=== PATIENT | female | born 1970 | race Two or more races ===

== ENCOUNTER 2024-05-27 10:37 | Outpatient (RCR) | payer MEDICAID, SELFPAY | END 2024-06-04 23:59 | disposition home or self-care (01) | LOC: SCTC 10:37 | PROVIDERS: PCP Family Medicine; Referring Provider Family Medicine; Visit Provider Nurse Practitioner Family | DX: D50.9 Iron deficiency anemia, unspecified (principal); D69.6 Thrombocytopenia, unspecified; F20.9 Schizophrenia, unspecified; I69.354 Hemiplegia and hemiparesis following cerebral infarction affecting left non-dominant side; R93.89 Abnormal findings on diagnostic imaging of other specified body structures; K57.92 Diverticulitis of intestine, part unspecified, without perforation or abscess without bleeding; K64.9 Unspecified hemorrhoids; N85.2 Hypertrophy of uterus | CPT/HCPCS: 99212; G0463 ==

== ENCOUNTER 2024-06-14 15:35 | Outpatient (RCR) | payer MEDICAID, SELFPAY | END 2024-07-05 23:59 | disposition home or self-care (01) | LOC: SCTC 15:35 | PROVIDERS: PCP Family Medicine; Referring Provider Family Medicine; Visit Provider Nurse Practitioner Family | DX: D50.9 Iron deficiency anemia, unspecified (principal); D69.6 Thrombocytopenia, unspecified; N85.2 Hypertrophy of uterus; F20.9 Schizophrenia, unspecified | CPT/HCPCS: 99212; G0463 ==

== ENCOUNTER 2024-08-04 14:07 | Outpatient (RCR) | payer MEDICAID, SELFPAY ==
[2024-07-21 09:39] LABS: Basophils % (Auto) 0 % (0-2.5); Eosinophils # (Auto) 0.1 Thou/mm3 (0.0-0.5); Eosinophils % (Auto) 3 % (0-10); Hematocrit 24.4 % (36.0-46.0); Hemoglobin 7.8 g/dL (12.0-16.0); Immature Granulocytes % (Auto) 2 % (0-0); Immature Granulocytes Auto 0.07 Thou/mm3 (0.00-0.00); Lymphocytes % (Auto) 28 % (10-50); Mean Corpuscular Hemoglobin 28.8 pg (25.0-35.0); Mean Corpuscular Volume 90 fL (80-100); Monocytes # (Auto) 0.3 Thou/mm3 (0.0-0.8); Monocytes % (Auto) 9 % (0-12); Neutrophils # (Auto) 2.1 Thou/mm3 (1.8-7.7); Neutrophils % (Auto) 58 % (37-80); Nucleated Red Blood Cell # 0.02 Thou/mm3 (0.00-0.00); Nucleated Red Blood Cell % 1 /100 WBC (0); Platelet Count 54 Thou/mm3 (140-440); RDW Standard Deviation 54.9 fL (36.4-46.3); Red Blood Count 2.71 Miln/mm3 (4.00-5.20); White Blood Count 3.6 Thou/mm3 (3.6-11.0)
[2024-07-21 10:22] LABS: Slide Review Platelets confirmed
[2024-08-04 15:15] LABS: Basophils % (Auto) 1 % (0-2.5); Eosinophils # (Auto) 0.1 Thou/mm3 (0.0-0.5); Eosinophils % (Auto) 4 % (0-10); Hematocrit 25.6 % (36.0-46.0); Immature Granulocytes % (Auto) 2 % (0-0); Immature Granulocytes Auto 0.05 Thou/mm3 (0.00-0.00); Lymphocytes # (Auto) 1.1 Thou/mm3 (1.0-4.8); Lymphocytes % (Auto) 35 % (10-50); Mean Corpuscular HGB Conc 32.4 g/dl (31.0-37.0); Mean Corpuscular Hemoglobin 29.7 pg (25.0-35.0); Mean Corpuscular Volume 92 fL (80-100); Monocytes # (Auto) 0.3 Thou/mm3 (0.0-0.8); Monocytes % (Auto) 11 % (0-12); Neutrophils # (Auto) 1.5 Thou/mm3 (1.8-7.7); Neutrophils % (Auto) 48 % (37-80); Nucleated Red Blood Cell % 0 /100 WBC (0); RDW Standard Deviation 54.8 fL (36.4-46.3); Red Blood Count 2.79 Miln/mm3 (4.00-5.20); White Blood Count 3.1 Thou/mm3 (3.6-11.0)
[2024-08-04 15:25] LABS: Hemoglobin 8.3 g/dL (12.0-16.0); Platelet Count 50 Thou/mm3 (140-440)
[2024-08-04 17:27] LABS: Slide Review Platelets confirmed
== END 2024-08-04 23:59 | disposition home or self-care (01) ==
LOC: SCTC 14:07
PROVIDERS: PCP Family Medicine; Referring Provider Family Medicine; Visit Provider Nurse Practitioner Family
DX: D50.9 Iron deficiency anemia, unspecified (principal); D69.6 Thrombocytopenia, unspecified; K74.60 Unspecified cirrhosis of liver; K75.81 Nonalcoholic steatohepatitis (NASH); F20.9 Schizophrenia, unspecified; K64.9 Unspecified hemorrhoids; K57.90 Diverticulosis of intestine, part unspecified, without perforation or abscess without bleeding; I69.354 Hemiplegia and hemiparesis following cerebral infarction affecting left non-dominant side
CPT/HCPCS: 36430; 85025; 86850; 86900; 86901; 86923; 96365; 96375; 99212; A4216; J1756; J2919; J3490; J7040; J7050; P9016; G0463

== ENCOUNTER 2024-08-31 13:34 | Outpatient (RCR) | payer MEDICAID, SELFPAY ==
[2024-08-10 14:31] LABS: Eosinophils # (Auto) 0.1 Thou/mm3 (0.0-0.5); Eosinophils % (Auto) 4 % (0-10); Monocytes # (Auto) 0.2 Thou/mm3 (0.0-0.8); Neutrophils % (Auto) 55 % (37-80); Nucleated Red Blood Cell % 0 /100 WBC (0)
[2024-08-10 14:32] LABS: Basophils % (Auto) 1 % (0-2.5); Hematocrit 25.3 % (36.0-46.0); Immature Granulocytes % (Auto) 2 % (0-0); Immature Granulocytes Auto 0.05 Thou/mm3 (0.00-0.00); Lymphocytes # (Auto) 0.8 Thou/mm3 (1.0-4.8); Lymphocytes % (Auto) 30 % (10-50); Mean Corpuscular HGB Conc 32.8 g/dl (31.0-37.0); Mean Corpuscular Hemoglobin 30.1 pg (25.0-35.0); Mean Corpuscular Volume 92 fL (80-100); Monocytes % (Auto) 9 % (0-12); Neutrophils # (Auto) 1.5 Thou/mm3 (1.8-7.7); RDW Standard Deviation 57.1 fL (36.4-46.3); Red Blood Count 2.76 Miln/mm3 (4.00-5.20)
[2024-08-10 14:34] LABS: Hemoglobin 8.3 g/dL (12.0-16.0); Platelet Count 46 Thou/mm3 (140-440)
[2024-08-10 14:36] LABS: White Blood Count 2.7 Thou/mm3 (3.6-11.0)
[2024-08-10 14:39] LABS: Slide Review Platelets confirmed
== END 2024-09-04 23:59 | disposition home or self-care (01) ==
LOC: SCTC 13:34
PROVIDERS: PCP Family Medicine; Referring Provider Family Medicine; Visit Provider Nurse Practitioner Family
DX: D50.9 Iron deficiency anemia, unspecified (principal); D69.6 Thrombocytopenia, unspecified; K74.60 Unspecified cirrhosis of liver; K75.81 Nonalcoholic steatohepatitis (NASH); F20.9 Schizophrenia, unspecified
CPT/HCPCS: 85025; 96365; 96375; J1756; J2919; J3490; J7040; J7050

== ENCOUNTER 2024-09-22 13:15 | Outpatient (RCR) | payer MEDICAID, SELFPAY ==
--- NOTE | 2024-09-20 00:38 | CTCFLWUP_ITS ---
Patient: VENECIA RESENDIZ : 1970 Page 4 of 5 FOLLOW UP NOTE DATE OF SERVICE: 09/14/2024 NAME: VENECIA RESENDIZ ACCOUNT: [id number] : 1970 AGE: 54 INTERVAL HISTORY: The patient, presents for a follow-up visit. She reports generalized abdominal pain. 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 She denies any bleeding concerns at this time. Ms. Resendiz has thrombocytopenia, likely secondary to hepatosplenomegaly. Recent labs from 07/07/2024 show hemoglobin of 8.0, MCV of 89, and platelets of 25,000. The patient is currently in a wheelchair, which is her baseline due to a history of stroke and residual left hemiparesis. Patient is accompanied by her care provider, Juana MARSH, [facility]. ONCOLOGY HISTORY: DIAGNOSIS: Normocytic anemia secondary to iron deficiency, 05/26/2023 History of thrombocytopenia likely secondary to hepatosplenomegaly due to cirrhosis from AWAN, 06/02/2023 History of schizophrenia Resident of [facility]. Platelet transfusion, platelets 16,000, (05/27/2019). DATE OF DIAGNOSIS: STAGE/TNM: TREATMENT HISTORY: Care?Plan Start?Date Cycle Day Intent VENOfer?200mg?IV?wkly?for?10?weeks 07/27/2024 1 70 Palliative HISTORY OF PRESENT ILLNESS: PREVIOUS NOTE: Ms. Venecia Bhatia is a 54-year-old Vietnamese-speaking female. Patient is accompanied by caregiver. Patient is a resident of [facility]. Patient has a history of schizophrenia stroke with residual left hemiparesis, uses wheelchair, patient follows up with Dr. Saldana, history of esophagitis, per endoscopy done on 05/28/2023, diverticulosis and hemorrhoids per colonoscopy done on 06/03/2023, history of chronic liver disease with hepatosplenomegaly thrombocytopenia most likely due to fatty liver and Awan cirrhosis per Dr. Saldana's hospital notes on 06/02/2023. During today's visit patient denies any concerns or complaints. Patient is taking ferrous sulfate to twice a day, patient has been taking it for few months. Patient denies any bleeding concerns. 05/14/2023: CT abdomen and pelvis with contrast, 05/19/2023: Hemoglobin 7.4, MCV 91, ANC 1.97, WBC 4.1, platelets 37,000 05/26/2023: Hemoglobin 6.3, MCV 91, ANC 2.78, WBC 3.9, platelets 14,000, AST 79, ALT 46, T. bili 1.0, iron saturation 15%, ferritin 184.7, vitamin B12 620, folate 13.8 AST 79, ALT 46, T. bili 1.0, 05/27/2023: Platelet transfusion, platelets 16,000. 05/28/2023: Liver ultrasound 06/26/2023: endoscopy 05/30/2023: Colonoscopy 06/02/2023: Hemoglobin 8.6, MCV 90, ANC 1.9, WBC 3.9, platelets 69,000 07/06/2023: Hemoglobin 8.8, MCV 93, ANC 1.75, WBC 3.8 platelets 32,000, creatinine 1.12 10/24/2023: Hemoglobin 8.4, MCV 94, ANC 1.5, WBC 3.1, platelets 38,000, no iron saturation collected, serum iron 66, ferritin 112.3, B12 is 466, folate is 12.7, AFP is 2, creatinine is 1.15, EGFR is 57 10/24/2023: 11/02/2023: Hemoglobin 8.4, MCV 95, ANC 1.87, WBC 3.4, platelets 44,000 OTHER MEDICAL HISTORY/CONDITIONS: CVA ABDOMINAL HERNIA ANXIETY DISORDER ACUTE GASTRIITS W/O BLEEDING HYPERLIPIDEMIA ABNORMAL UTRINE AND VAG BLEEDING DIABETES MILD DYSPHAGIA DIVERTICULITIS UNABLE?TO?GIVE?HISTORY FAMILY HISTORY: Cancer History:?Maternal grandfather - liver Patient?denies?family?cancer?history. SOCIAL HISTORY: Occupational?History:?DISABLED?FROM?SNF Education?Level:?Completed something less than 8th grade Marital?Status:? Tobacco?Pack?per?Day:?0 Tobacco?Use:?Denies ETOH?Use:?DENIES Drug?Note:?DENIES Social History Note:?LIVES [facility] [employer] HISTORY: Menarche?-?Age:?13 Menopause:?UNKNOWN :?2 Live?Births:?2 Age?1st?:?31 MEDICATIONS: 1. Abilify - 15 mg 1 tab Every day before sleep 2. allopurinol - 100 mg 1 tab Daily 3. aspirin - 81 mg 1 tab Daily 4. atorvastatin - 40 mg 1 tab Every day before sleep 5. busPIRone - 7.5 mg 1 tab Twice a Day 6. Cymbalta - 60 mg 1 Capsule Twice a Day 7. Depakote - 500 mg 1 Twice a Day 8. ferrous sulfate - 325 mg (65 mg iron) 1 tab Daily 9. gabapentin - 300 mg 1 Capsule Three times a day 10. HumaLOG U-100 Insulin - 100 unit/mL As directed 11. Ibuprofen 200 - 200 mg 2 tab Every 8 Hours 12. Lantus - 100 unit/mL 75 Units Every day before sleep 13. latanoprost (PF) - 0.005 % 1 drops Every day before sleep 14. lisinopril - 20 mg 1 tab Daily 15. lorazepam - 1 mg 1 tab Twice a Day 16. melatonin - 3 mg 1 tab Every day before sleep 17. metFORMIN - 1,000 mg 1 tab Twice a Day 18. metoprolol succinate - 50 mg 1 tab Daily 19. multivitamin - 1 tab Daily 20. nitroglycerin - 0.4 mg As directed 21. Ozempic - 0.25 Weekly 22. Ozempic - 0.25 mg or 0.5 mg (2 mg/3 mL) 0.25 mg Weekly 23. pantoprazole - 40 mg 1 tab Twice a Day 24. traMADol - 50 mg 1 tab Every 6 Hours 25. tramadol - 50 mg As directed 26. Vitamin C - 500 mg 1 tab Twice a Day Medications Last Reconciled by Usha Bhatia MA on 07/19/2024 ALLERGIES: acetaminophen; hydrocodone-acetaminophen; PENICILLAMINE REVIEW OF SYSTEMS: A complete 14-point review of systems was performed and is negative except as noted in interval history. PHYSICAL EXAMINATION: VITAL SIGNS: Temperature?98.8, B/P?126/79, Oxygen?Saturation?96% PAIN: 0 - No pain ECOG Performance Status: 3 - Symptomatic; limited self-care; spends >50% of time in bed, not bedridden GENERAL APPEARANCE: Appears well, in no apparent distress, appropriately interactive. HEENT: Normocephalic, no temporal wasting, normal conjunctiva, no scleral icterus, normal hearing, lips without lesions, neck normal range of motion. CARDIOVASCULAR: Not assessed. PULMONARY: Normal respiratory effort, no respiratory distress or use of accessory muscles, speaking in full sentences, no tachypnea. EXTREMITIES: No cyanosis. Uses wheelchair. Residual left-sided hemiparesis, baseline for patient. SKIN: Normal skin appearance. NEUROLOGIC: Alert and oriented PSHYCHIATRIC: Appropriate affect, mood normal, behavior normal, intact thought and speech. LABORATORY DATA: I have personally reviewed and interpreted each of the patient?s relevant lab tests, abnormal findings are below: Date 07/21/24 08/04/24 08/10/24 ??WHITE?BLOOD?COUNT?(Thou/mm3) 3.6 3.1?L 2.7?L ??RED?BLOOD?COUNT?(Miln/mm3) 2.71?L 2.79?L 2.76?L ??HEMOGLOBIN?(gm/dl) 7.8?L 8.3?L 8.3?L ??HEMATOCRIT?(%) 24.4?L 25.6?L 25.3?L ??PLATELET?COUNT?(Thou/mm3) 54?L 50?L 46?L ??NEUTROPHILS?%,?AUTO?(%) 58 48 55 ??LYMPH?%,?AUTO?(%) 28 35 30 ??NEUTROPHILS,?AUTO?(Thou/mm3) 2.1 1.5?L 1.5?L ASSESSMENT/PLAN: 1. Pancytopenia likely from underlying cirrhosis Patient have progressively dropped her white cell count Anemia and thrombocytopenia stable Patient labs reviewed Need follow-up with hepatology Patient states that she continues to have vaginal bleed History very unreliable Will refer to lay out technician as well as to hormone testing Will do FibroScan to see her cirrhosis status Can start Promacta once platelets are persistently below 50 2. Resident of [facility]. History of schizophrenia History of stroke, residual left-sided hemiparesis. Shelia RN is Ms. Resendiz?s nurses, charge nurses Denia QUINONES . Juana MARSH came with patient today, ORDERS: Order # Description [id number] Comprehensive Metabolic Panel - 12 + CBC with Auto Diff [id number] AFP [id number] MD Follow Up 2 Months [id number] Gonadotropin (Fsh) + Gonadotropin; Luteinizing Hormone (Lh) + Estradiol [id number] RETURN TO CLINIC: Follow-up with the workup BILLING AND COMPLIANCE: I reviewed external records from providers outside my specialty as summarized above. I spent a total of 50 minutes on this patient?s care on the day of their visit excluding time spent related to any billed procedures. This time includes time spent with the patient as well as time spent documenting in the medical record, reviewing patients records and tests, obtaining history, placing orders, communicating with other healthcare professionals, counseling the patient, family or caregiver, and/or care coordination for the diagnoses above. Electronically Signed by: Donovan Poon MD T: 12:35 AM CC: PCP: Sneha Vásquez Referring: Sneha Vásquez This document was completed utilizing speech recognition software. Grammatical errors, random word insertions, pronoun errors, and incomplete sentences are an occasional consequence of this system due to software limitations, ambient noise, and hardware issues. Any formal questions or concerns about the content, text or information contained within the body of this dictation should be directly addressed to the provider for clarification.
== END 2024-10-04 23:59 | disposition home or self-care (01) ==
LOC: SCTC 13:15
PROVIDERS: PCP Hospitalist; Referring Provider Hospitalist; Visit Provider Nurse Practitioner Family
DX: D61.818 Other pancytopenia (principal); R10.84 Generalized abdominal pain; K74.60 Unspecified cirrhosis of liver; K75.81 Nonalcoholic steatohepatitis (NASH); R16.2 Hepatomegaly with splenomegaly, not elsewhere classified; I69.354 Hemiplegia and hemiparesis following cerebral infarction affecting left non-dominant side; F20.9 Schizophrenia, unspecified
CPT/HCPCS: 96365; 96375; 99212; J1756; J2919; J3490; J7040; J7050; G0463

== ENCOUNTER → 2024-09-24 | Outpatient (CLI) | payer MEDICAID, SELFPAY ==
[2024-09-24 15:15] LABS: HCG Qualitative,Urine Negative
--- NOTE | 2024-09-24 15:45 | XR_ITS ---
Examination: MRI abdomen with intravenous contrast. MRI abdomen without intravenous contrast. Date and time of exam: September 24, 2024 1606 hours INDICATIONS: Iron deficiency anemia unspecified, abdominal pain 3 months, hepatosplenomegaly and CT abdomen pelvis November 24, 2023 Technique: Multiple axial, sagittal and coronal sections of the abdomen obtained. Transverse images, TR 6020, TE 107. T1 weighted transverse images, TR 582, TE 9.5. T2-weighted sagittal images, TR 4000, TE 105. T2-weighted sagittal images, TR 4000, TE 5. Coronal images, TR 4210, TE 107. Axial and coronal images are obtained post 19 cc intravenous injection, gadolinium. Findings: Hepatomegaly 24 cm liver is irregular in contour, no focal liver lesions Postcontrast images demonstrate no abnormal enhancing liver lesions Splenomegaly, 14.5 cm Contracted gallbladder Common bile duct 9 mm no common bile duct or common hepatic duct stones No pancreatic mass, no dilated pancreatic duct Perinephric stranding, small kidneys with moderate renal parenchymal scar formation Aorta normal size No ascites No abdominal lymphadenopathy IMPRESSION: Hepatosplenomegaly Primary hepatocellular disease Contracted gallbladder No common hepatic or common bile duct stones No abdominal lymphadenopathy. Mild perinephric stranding Negative for ascites
== END | disposition home or self-care (01) ==
PROVIDERS: PCP Family Medicine; Referring Provider Nurse Practitioner Family; Visit Provider Nurse Practitioner Family
DX: R16.2 Hepatomegaly with splenomegaly, not elsewhere classified (principal); K82.8 Other specified diseases of gallbladder; K76.9 Liver disease, unspecified; Z32.00 Encounter for pregnancy test, result unknown
CPT/HCPCS: 74183; 81025; A9579

== ENCOUNTER 2024-11-25 10:30 | Outpatient (RCR) | payer MEDICAID, SELFPAY ==
--- NOTE | 2024-11-25 14:11 | CTCFLWUP_ITS ---
Patient: VENECIA RESENDIZ : 1970 Page 2 of 2 FOLLOW UP NOTE DATE OF SERVICE: 11/25/2024 NAME: VENECIA RESENDIZ ACCOUNT: [id number] : 1970 AGE: 54 INTERVAL HISTORY: The patient, presents for a follow-up visit. She reports generalized abdominal pain. 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 She denies any bleeding concerns at this time. Ms. Resendiz has thrombocytopenia, likely secondary to hepatosplenomegaly. Recent labs from 07/07/2024 show hemoglobin of 8.0, MCV of 89, and platelets of 25,000. The patient is currently in a wheelchair, which is her baseline due to a history of stroke and residual left hemiparesis. Patient is accompanied by her care provider, Juana MARSH, [facility]. ONCOLOGY HISTORY: DIAGNOSIS: Normocytic anemia secondary to iron deficiency, 05/26/2023 History of thrombocytopenia likely secondary to hepatosplenomegaly due to cirrhosis from AWAN, 06/02/2023 History of schizophrenia Resident of [facility]. Platelet transfusion, platelets 16,000, (05/27/2019). TREATMENT HISTORY: Care?Plan Start?Date Cycle Day Intent VENOfer?200mg?IV?wkly?for?10?weeks 07/27/2024 1 70 Palliative HISTORY OF PRESENT ILLNESS: PREVIOUS NOTE: Ms. Venecia Bhatia is a 54-year-old Trinidadian-speaking female. Patient is accompanied by caregiver. Patient is a resident of [facility]. Patient has a history of schizophrenia stroke with residual left hemiparesis, uses wheelchair, patient follows up with Dr. Saldana, history of esophagitis, per endoscopy done on 05/28/2023, diverticulosis and hemorrhoids per colonoscopy done on 06/03/2023, history of chronic liver disease with hepatosplenomegaly thrombocytopenia most likely due to fatty liver and Awan cirrhosis per Dr. Saldana's hospital notes on 06/02/2023. During today's visit patient denies any concerns or complaints. Patient is taking ferrous sulfate to twice a day, patient has been taking it for few months. Patient denies any bleeding concerns. 05/14/2023: CT abdomen and pelvis with contrast, 05/19/2023: Hemoglobin 7.4, MCV 91, ANC 1.97, WBC 4.1, platelets 37,000 05/26/2023: Hemoglobin 6.3, MCV 91, ANC 2.78, WBC 3.9, platelets 14,000, AST 79, ALT 46, T. bili 1.0, iron saturation 15%, ferritin 184.7, vitamin B12 620, folate 13.8 AST 79, ALT 46, T. bili 1.0, 05/27/2023: Platelet transfusion, platelets 16,000. 05/28/2023: Liver ultrasound 06/26/2023: endoscopy 05/30/2023: Colonoscopy 06/02/2023: Hemoglobin 8.6, MCV 90, ANC 1.9, WBC 3.9, platelets 69,000 07/06/2023: Hemoglobin 8.8, MCV 93, ANC 1.75, WBC 3.8 platelets 32,000, creatinine 1.12 10/24/2023: Hemoglobin 8.4, MCV 94, ANC 1.5, WBC 3.1, platelets 38,000, no iron saturation collected, serum iron 66, ferritin 112.3, B12 is 466, folate is 12.7, AFP is 2, creatinine is 1.15, EGFR is 57 10/24/2023: 11/02/2023: Hemoglobin 8.4, MCV 95, ANC 1.87, WBC 3.4, platelets 44,000 OTHER MEDICAL HISTORY/CONDITIONS: CVA ABDOMINAL HERNIA ANXIETY DISORDER ACUTE GASTRIITS W/O BLEEDING HYPERLIPIDEMIA ABNORMAL UTRINE AND VAG BLEEDING DIABETES MILD DYSPHAGIA DIVERTICULITIS UNABLE?TO?GIVE?HISTORY FAMILY HISTORY: Cancer History:?Maternal grandfather - liver Patient?denies?family?cancer?history. SOCIAL HISTORY: Occupational?History:?DISABLED?FROM?SNF Education?Level:?Completed something less than 8th grade Marital?Status:? Tobacco?Pack?per?Day:?0 Tobacco?Use:?Denies ETOH?Use:?DENIES Drug?Note:?DENIES Social History Note:?LIVES [facility] [employer] [facility] REPRESENTATIVE HISTORY: Menarche?-?Age:?13 Menopause:?UNKNOWN :?2 Live?Births:?2 Age?1st?:?31 MEDICATIONS: 1. Abilify - 15 mg 1 tab Every day before sleep 2. allopurinol - 100 mg 1 tab Daily 3. aspirin - 81 mg 1 tab Daily 4. atorvastatin - 40 mg 1 tab Every day before sleep 5. busPIRone - 7.5 mg 1 tab Twice a Day 6. Cymbalta - 60 mg 1 Capsule Twice a Day 7. Depakote - 500 mg 1 Twice a Day 8. ferrous sulfate - 325 mg (65 mg iron) 1 tab Daily 9. gabapentin - 300 mg 1 Capsule Three times a day 10. HumaLOG U-100 Insulin - 100 unit/mL As directed 11. Ibuprofen 200 - 200 mg 2 tab Every 8 Hours 12. Lantus - 100 unit/mL 75 Units Every day before sleep 13. latanoprost (PF) - 0.005 % 1 drops Every day before sleep 14. lisinopril - 20 mg 1 tab Daily 15. lorazepam - 1 mg 1 tab Twice a Day 16. melatonin - 3 mg 1 tab Every day before sleep 17. metFORMIN - 1,000 mg 1 tab Twice a Day 18. metoprolol succinate - 50 mg 1 tab Daily 19. multivitamin - 1 tab Daily 20. nitroglycerin - 0.4 mg As directed 21. Ozempic - 0.25 Weekly 22. Ozempic - 0.25 mg or 0.5 mg (2 mg/3 mL) 0.25 mg Weekly 23. pantoprazole - 40 mg 1 tab Twice a Day 24. Promacta - 50 mg 1 tab Daily 25. tramadol - 50 mg As directed 26. traMADol - 50 mg 1 tab Every 6 Hours 27. Vitamin C - 500 mg 1 tab Twice a Day Medications Last Reconciled by Usha Bhatia MA on 07/19/2024 ALLERGIES: acetaminophen; hydrocodone-acetaminophen; PENICILLAMINE REVIEW OF SYSTEMS: A complete 14-point review of systems was performed and is negative except as noted in interval history. PHYSICAL EXAMINATION: VITAL SIGNS: PAIN: 0 - No pain ECOG Performance Status: 1 - Symptomatic; ambulatory; restricted in strenuous activity GENERAL APPEARANCE: Appears well, in no apparent distress, appropriately interactive. HEENT: Normocephalic, no temporal wasting, normal conjunctiva, no scleral icterus, normal hearing, lips without lesions, neck normal range of motion. CARDIOVASCULAR: Not assessed. PULMONARY: Normal respiratory effort, no respiratory distress or use of accessory muscles, speaking in full sentences, no tachypnea. EXTREMITIES: No cyanosis. Uses wheelchair. Residual left-sided hemiparesis, baseline for patient. SKIN: Normal skin appearance. NEUROLOGIC: Alert and oriented PSHYCHIATRIC: Appropriate affect, mood normal, behavior normal, intact thought and speech. LABORATORY DATA: I have personally reviewed and interpreted each of the patient?s relevant lab tests, abnormal findings are below: Date 07/21/24 08/04/24 08/10/24 ??WHITE?BLOOD?COUNT?(Thou/mm3) 3.6 3.1?L 2.7?L ??RED?BLOOD?COUNT?(Miln/mm3) 2.71?L 2.79?L 2.76?L ??HEMOGLOBIN?(gm/dl) 7.8?L 8.3?L 8.3?L ??HEMATOCRIT?(%) 24.4?L 25.6?L 25.3?L ??PLATELET?COUNT?(Thou/mm3) 54?L 50?L 46?L ??NEUTROPHILS?%,?AUTO?(%) 58 48 55 ??LYMPH?%,?AUTO?(%) 28 35 30 ??NEUTROPHILS,?AUTO?(Thou/mm3) 2.1 1.5?L 1.5?L ASSESSMENT/PLAN: 1. Pancytopenia likely from underlying cirrhosis Patient have progressively dropped her white cell count Anemia and thrombocytopenia stable Patient labs reviewed Need follow-up with hepatology Patient states that she continues to have vaginal bleed History very unreliable Will refer to watch caser as well as to hormone testing Will do FibroScan to see her cirrhosis status Start promacta 50 mg a day 2. Resident of [facility]. History of schizophrenia History of stroke, residual left-sided hemiparesis. Shelia RN is Trev Easton?s nurses, charge nurses Denia RN . Juana MARSH came with patient today, ORDERS: Order # Description [id number] Comprehensive Metabolic Panel - 12 + CBC with Auto Diff [id number] Follow Up 4 Week [id number] RETURN TO CLINIC: I reviewed the diagnosis, prognosis, and recommended treatment/procedure options with the patient (and/or their legal bilingual call center representative), including the potential benefits, risks, side effects and alternative therapies. We also discussed the option of no treatment and the possibility of clinical trial participation, if applicable. All questions were addressed, and they demonstrated understanding. They provided informed consent to proceed with the proposed plan of care. BILLING AND COMPLIANCE: I reviewed external records from providers outside my specialty as summarized above. I spent a total of 50 minutes on this patient?s care on the day of their visit excluding time spent related to any billed procedures. This time includes time spent with the patient as well as time spent documenting in the medical record, reviewing patients records and tests, obtaining history, placing orders, communicating with other healthcare professionals, counseling the patient, family or caregiver, and/or care coordination for the diagnoses above. Electronically Signed by: Donovan Poon MD T: 2:08 PM CC: PCP: Daniel Michelle Referring: Daniel Michelle This document was completed utilizing speech recognition software. Grammatical errors, random word insertions, pronoun errors, and incomplete sentences are an occasional consequence of this system due to software limitations, ambient noise, and hardware issues. Any formal questions or concerns about the content, text or information contained within the body of this dictation should be directly addressed to the provider for clarification.
== END 2024-12-05 23:59 | disposition home or self-care (01) ==
LOC: SCTC 10:30
PROVIDERS: PCP Family Medicine; Referring Provider Family Medicine; Visit Provider Internal Medicine Hematology & Oncology
DX: D61.818 Other pancytopenia (principal); F20.9 Schizophrenia, unspecified; K74.60 Unspecified cirrhosis of liver; R10.84 Generalized abdominal pain; I69.954 Hemiplegia and hemiparesis following unspecified cerebrovascular disease affecting left non-dominant side
CPT/HCPCS: 99213; G0463

== ENCOUNTER 2025-02-22 10:05 | Outpatient (RCR) | payer MEDICAID, SELFPAY ==
--- NOTE | 2025-02-22 11:03 | CTCFLWUP_ITS ---
Patient: VENECIA MCCORMACK : 1970 Page 2 of 2 FOLLOW UP NOTE DATE OF SERVICE: 02/22/2025 NAME: VENECIA MCCORMACK ACCOUNT: [id number] : 1970 AGE: 54 INTERVAL HISTORY: Ms. Mccormack, presents for a follow-up visit. She reports feeling weak and tired. Patient is drowsy and unable to have conversation. 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 She denies any bleeding concerns at this time. Ms. Mccormack has thrombocytopenia, likely secondary to hepatosplenomegaly. The labs from January 2025 shows hemoglobin of 7.8 and platelets 40. The patient is currently in a wheelchair, which is her baseline due to a history of stroke and residual left hemiparesis. Patient was left in the clinic waiting area with a new tenders. I advised my nurses to draw blood and send patient to emergency room for evaluation and management. ONCOLOGY HISTORY: DIAGNOSIS: Normocytic anemia secondary to iron deficiency, 05/26/2023 History of thrombocytopenia likely secondary to hepatosplenomegaly due to cirrhosis from AWAN, 06/02/2023 History of schizophrenia Resident of [facility]. Platelet transfusion, platelets 16,000, (05/27/2019). TREATMENT HISTORY: Care?Plan Start?Date Cycle Day Intent VENOfer?200mg?IV?wkly?for?10?weeks 07/27/2024 1 70 Palliative HISTORY OF PRESENT ILLNESS: PREVIOUS NOTE: Ms. Venecia Bhatia is a 54-year-old Tunisian-speaking female. Patient is accompanied by caregiver. Patient is a resident of [facility]. Patient has a history of schizophrenia stroke with residual left hemiparesis, uses wheelchair, patient follows up with Dr. Saldana, history of esophagitis, per endoscopy done on 05/28/2023, diverticulosis and hemorrhoids per colonoscopy done on 06/03/2023, history of chronic liver disease with hepatosplenomegaly thrombocytopenia most likely due to fatty liver and Awan cirrhosis per Dr. Saldana's hospital notes on 06/02/2023. During today's visit patient denies any concerns or complaints. Patient is taking ferrous sulfate to twice a day, patient has been taking it for few months. Patient denies any bleeding concerns. 05/14/2023: CT abdomen and pelvis with contrast, 05/19/2023: Hemoglobin 7.4, MCV 91, ANC 1.97, WBC 4.1, platelets 37,000 05/26/2023: Hemoglobin 6.3, MCV 91, ANC 2.78, WBC 3.9, platelets 14,000, AST 79, ALT 46, T. bili 1.0, iron saturation 15%, ferritin 184.7, vitamin B12 620, folate 13.8 AST 79, ALT 46, T. bili 1.0, 05/27/2023: Platelet transfusion, platelets 16,000. 05/28/2023: Liver ultrasound 06/26/2023: endoscopy 05/30/2023: Colonoscopy 06/02/2023: Hemoglobin 8.6, MCV 90, ANC 1.9, WBC 3.9, platelets 69,000 07/06/2023: Hemoglobin 8.8, MCV 93, ANC 1.75, WBC 3.8 platelets 32,000, creatinine 1.12 10/24/2023: Hemoglobin 8.4, MCV 94, ANC 1.5, WBC 3.1, platelets 38,000, no iron saturation collected, serum iron 66, ferritin 112.3, B12 is 466, folate is 12.7, AFP is 2, creatinine is 1.15, EGFR is 57 10/24/2023: 11/02/2023: Hemoglobin 8.4, MCV 95, ANC 1.87, WBC 3.4, platelets 44,000 OTHER MEDICAL HISTORY/CONDITIONS: CVA ABDOMINAL HERNIA ANXIETY DISORDER ACUTE GASTRIITS W/O BLEEDING HYPERLIPIDEMIA ABNORMAL UTRINE AND VAG BLEEDING DIABETES MILD DYSPHAGIA DIVERTICULITIS UNABLE?TO?GIVE?HISTORY FAMILY HISTORY: Cancer History:?Maternal grandfather - liver Patient?denies?family?cancer?history. SOCIAL HISTORY: Occupational?History:?DISABLED?FROM?SNF Education?Level:?Completed something less than 8th grade Marital?Status:? Tobacco?Pack?per?Day:?0 Tobacco?Use:?Denies ETOH?Use:?DENIES Drug?Note:?DENIES Social History Note:?LIVES MANDY Played [employer] HISTORY: Menarche?-?Age:?13 Menopause:?UNKNOWN :?2 Live?Births:?2 Age?1st?:?31 MEDICATIONS: 1. Abilify - 15 mg 1 tab Every day before sleep 2. allopurinol - 100 mg 1 tab Daily 3. aspirin - 81 mg 1 tab Daily 4. atorvastatin - 40 mg 1 tab Every day before sleep 5. busPIRone - 7.5 mg 1 tab Twice a Day 6. Cymbalta - 60 mg 1 Capsule Twice a Day 7. Depakote - 500 mg 1 Twice a Day 8. ferrous sulfate - 325 mg (65 mg iron) 1 tab Daily 9. gabapentin - 300 mg 1 Capsule Three times a day 10. HumaLOG U-100 Insulin - 100 unit/mL As directed 11. Ibuprofen 200 - 200 mg 2 tab Every 8 Hours 12. Lantus - 100 unit/mL 75 Units Every day before sleep 13. latanoprost (PF) - 0.005 % 1 drops Every day before sleep 14. lisinopril - 20 mg 1 tab Daily 15. lorazepam - 1 mg 1 tab Twice a Day 16. melatonin - 3 mg 1 tab Every day before sleep 17. metFORMIN - 1,000 mg 1 tab Twice a Day 18. metoprolol succinate - 50 mg 1 tab Daily 19. multivitamin - 1 tab Daily 20. nitroglycerin - 0.4 mg As directed 21. Ozempic - 0.25 Weekly 22. Ozempic - 0.25 mg or 0.5 mg (2 mg/3 mL) 0.25 mg Weekly 23. pantoprazole - 40 mg 1 tab Twice a Day 24. Promacta - 50 mg 1 tab Daily 25. tramadol - 50 mg As directed 26. traMADol - 50 mg 1 tab Every 6 Hours 27. Vitamin C - 500 mg 1 tab Twice a Day Medications Last Reconciled by Charis Naik MD on 02/22/2025 ALLERGIES: acetaminophen; hydrocodone-acetaminophen; PENICILLAMINE REVIEW OF SYSTEMS: A complete 14-point review of systems was performed and is negative except as noted in interval history. PHYSICAL EXAMINATION: VITAL SIGNS: Temperature?97.3, B/P?139/74, Oxygen?Saturation?100% PAIN: 0 - No pain ECOG Performance Status: 3 - Symptomatic; limited self-care; spends >50% of time in bed, not bedridden GENERAL APPEARANCE: Appears well, in no apparent distress, appropriately interactive. HEENT: Normocephalic, no temporal wasting, normal conjunctiva, no scleral icterus, normal hearing, lips without lesions, neck normal range of motion. CARDIOVASCULAR: Not assessed. PULMONARY: Normal respiratory effort, no respiratory distress or use of accessory muscles, speaking in full sentences, no tachypnea. EXTREMITIES: No cyanosis. Uses wheelchair. Residual left-sided hemiparesis, baseline for patient. SKIN: Normal skin appearance. NEUROLOGIC: Alert and oriented PSHYCHIATRIC: Drowsy LABORATORY DATA: I have personally reviewed and interpreted each of the patient?s relevant lab tests, abnormal findings are below: Date 07/21/24 08/04/24 08/10/24 ??WHITE?BLOOD?COUNT?(Thou/mm3) 3.6 3.1?L 2.7?L ??RED?BLOOD?COUNT?(Miln/mm3) 2.71?L 2.79?L 2.76?L ??HEMOGLOBIN?(gm/dl) 7.8?L 8.3?L 8.3?L ??HEMATOCRIT?(%) 24.4?L 25.6?L 25.3?L ??PLATELET?COUNT?(Thou/mm3) 54?L 50?L 46?L ??NEUTROPHILS?%,?AUTO?(%) 58 48 55 ??LYMPH?%,?AUTO?(%) 28 35 30 ??NEUTROPHILS,?AUTO?(Thou/mm3) 2.1 1.5?L 1.5?L ASSESSMENT/PLAN: 1. Pancytopenia likely from underlying cirrhosis Patient have progressively dropped her white cell count Anemia and thrombocytopenia stable Patient labs reviewed Need follow-up with hepatology Patient states that she continues to have vaginal bleed History very unreliable Not clear if patient has seen jack machine operator No FibroScan results Patient cannot say if she has started Promacta Will do workup to see if patient's iron deficiency have resolved 2. Resident of [facility]. History of schizophrenia History of stroke, residual left-sided hemiparesis. Shelia QUINONES is Ms. Mccormack?s nurses, charge nurses Denia QUINONES . --Noted in at first visit Will send patient to emergency room as patient have no accompanying caregiver and patient is unsafe to be left alone We will not be accepting patient from [facility] unless accompanied by caregiver for throughout Ms. Mccormack's visit ORDERS: Order # Description [id number] Comprehensive Metabolic Panel - 12 + CBC with Auto Diff [id number] Iron Panel + Ferritin + Lactate Dehydrogenase (LDH) + Assay Of Haptoglobin Quant [id number] Follow Up 2 Months RETURN TO CLINIC: I reviewed the diagnosis, prognosis, and recommended treatment/procedure options with the patient (and/or their legal front desk representative), including the potential benefits, risks, side effects and alternative therapies. We also discussed the option of no treatment and the possibility of clinical trial participation, if applicable. All questions were addressed, and they demonstrated understanding. They provided informed consent to proceed with the proposed plan of care. BILLING AND COMPLIANCE: I reviewed external records from providers outside my specialty as summarized above. I spent a total of 50 minutes on this patient?s care on the day of their visit excluding time spent related to any billed procedures. This time includes time spent with the patient as well as time spent documenting in the medical record, reviewing patients records and tests, obtaining history, placing orders, communicating with other healthcare professionals, counseling the patient, family or caregiver, and/or care coordination for the diagnoses above. Electronically Signed by: Donovan Poon MD T: 11:01 AM CC: PCP: Yogesh Michelle Referring: Yogesh Michelle This document was completed utilizing speech recognition software. Grammatical errors, random word insertions, pronoun errors, and incomplete sentences are an occasional consequence of this system due to software limitations, ambient noise, and hardware issues. Any formal questions or concerns about the content, text or information contained within the body of this dictation should be directly addressed to the provider for clarification.
[2025-02-22 13:10] LABS: Basophils # (Auto) 0.0 Thou/mm3 (0.0-0.2); Basophils % (Auto) 1 % (0-2.5); Eosinophils # (Auto) 0.1 Thou/mm3 (0.0-0.5); Eosinophils % (Auto) 4 % (0-10); Hematocrit 25.8 % (36.0-46.0); Immature Granulocytes Auto 0.08 Thou/mm3 (0.00-0.00); Lymphocytes # (Auto) 0.8 Thou/mm3 (1.0-4.8); Lymphocytes % (Auto) 30 % (10-50); Mean Corpuscular HGB Conc 31.4 g/dl (31.0-37.0); Mean Corpuscular Hemoglobin 31.8 pg (25.0-35.0); Mean Corpuscular Volume 101 fL (80-100); Monocytes # (Auto) 0.3 Thou/mm3 (0.0-0.8); Monocytes % (Auto) 9 % (0-12); Neutrophils # (Auto) 1.4 Thou/mm3 (1.8-7.7); Neutrophils % (Auto) 53 % (37-80); Nucleated Red Blood Cell # 0.00 Thou/mm3 (0.00-0.00); Nucleated Red Blood Cell % 0 /100 WBC (0); RDW Standard Deviation 56.6 fL (36.4-46.3); Red Blood Count 2.55 Miln/mm3 (4.00-5.20); White Blood Count 2.7 Thou/mm3 (3.6-11.0)
[2025-02-22 13:13] LABS: Hemoglobin 8.1 g/dL (12.0-16.0); Platelet Count 55 Thou/mm3 (140-440)
[2025-02-22 13:27] LABS: Uric Acid 6.3 mg/dL (3.1-7.8)
[2025-02-22 13:28] LABS: Alanine Aminotransferase 41 U/L (10-49); Albumin, Serum 4.2 gm/dL (3.5-5.0); Albumin/Globulin Ratio 1.6 (1.2-2.2); Alkaline Phosphatase 257 U/L (46-116); Anion Gap 11 (7-16); Aspartate Amino Transferase 57 U/L (0-34); BUN/Creatinine Ratio 15 Ratio (12-20); Bilirubin,Total 0.5 mg/dL (0.3-1.2); Blood Urea Nitrogen 23 mg/dL (9-23); Calcium 8.8 mg/dL (8.3-10.6); Calcium (Corrected) 8.8 mg/dL (8.5-10.1); Carbon Dioxide 22.7 mMol/L (20.0-31.0); Chloride 105 mMol/L (98-107); Creatinine (Component) 1.5 mg/dL (0.6-1.3); Globulin 2.7 gm/dL (2.3-3.5); Glucose 228 mg/dL (74-106); LDH (Lactate Dehydrogenase) 150 U/L (120-246); Osmolality,Calculated 288 (275-295); Potassium 5.0 mMol/L (3.4-5.1); Sodium 139 mMol/L (136-145); Total Protein 6.9 gm/dL (5.7-8.2); eGFR 41 See Note
[2025-02-22 13:29] LABS: Ferritin 408 ng/mL (7.3-270.7); Folate 10.77 ng/mL (>5.38); Iron 56 mcg/dL (50-170); Percent Iron Saturation 17 % (20-55); Total Iron Binding Capacity 314 mcg/dL (250-425); Unsaturated Iron Binding 258 (225-295); Vitamin B12 567 pg/mL (211-911)
[2025-02-22 14:54] LABS: Slide Review Platelets confirmed
== END 2025-03-06 23:59 | disposition home or self-care (01) ==
LOC: SCTC 10:05
PROVIDERS: PCP Family Medicine; Referring Provider Family Medicine; Visit Provider Internal Medicine Hematology & Oncology
DX: D61.818 Other pancytopenia (principal); K74.60 Unspecified cirrhosis of liver; I69.954 Hemiplegia and hemiparesis following unspecified cerebrovascular disease affecting left non-dominant side; F20.9 Schizophrenia, unspecified
CPT/HCPCS: 80053; 82607; 82728; 82746; 83540; 83550; 83615; 84550; 85025; 99212; G0463

== ENCOUNTER 2025-02-22 11:23 | Inpatient (IN) | payer MEDICAID, SELFPAY ==
[2025-02-22 11:41] VITALS: BP 137/76; PULSE 92; RESP 18; TEMP 36.8; O2SAT 95
--- NOTE | 2025-02-22 11:58 | PD.EDADULT ---
ED General RME/HPI General Chief complaint: Dizziness Stated complaint: SENT BY CTC; PT NOT FEELING GOOD, DIZZY Time Seen by Provider: 02/22/25 11:51 Arrival date/time: 02/22/25 11:23 CC: Weakness dizziness headache abdominal pain chest pain HPI patient did not sleep last night and was at the cancer treatment center was acting weak, was concerned that Dr. Guzman who sent her to the ER for evaluation. Patient denies any fever chills nausea or vomiting. Patient is a difficult to get symptoms out of as she is not very forthcoming with information. Patient has a history of a CVA anemia obesity and cirrhosis. Related Data Home Medications ?Medication ?Instructions ?Recorded ?Confirmed aripiprazole 10 mg tablet (Abilify) 15 mg PO HS Bipolar Disorder #0 03/29/14 12/03/23 tabs gabapentin 300 mg capsule 300 mg PO TID PRN PAIN #0 caps 03/29/14 12/03/23 insulin lispro 100 unit/mL See Protocol subcut AC PRN 03/29/14 12/03/23 subcutaneous solution (Humalog DIABETES #0 vials U-100 Insulin) metformin 500 mg tablet 1,000 mg PO BIDAC Diabetes #0 tabs 03/29/14 12/03/23 (Glucophage) duloxetine 30 mg capsule,delayed 60 mg PO BID #0 caps 07/13/14 12/03/23 release (Cymbalta) lisinopril 20 mg tablet (Prinivil) 20 mg PO QDAY #0 tabs 07/13/14 12/03/23 buspirone 7.5 mg tablet 7.5 mg PO BID 12/26/20 12/03/23 lactulose 10 gram/15 mL oral 30 ml PO TID 12/26/20 12/03/23 solution metoprolol succinate 50 mg capsule 50 mg PO QDAY 12/26/20 12/03/23 sprinkle, ext. release 24 hr allopurinol 100 mg tablet 100 mg PO QDAY 05/28/23 12/03/23 atorvastatin 40 mg tablet 40 mg PO HS 05/28/23 12/03/23 latanoprost 0.005 % eye drops 1 drp ophthalmic (eye) QPM 05/28/23 12/03/23 levalbuterol HCl 1.25 mg/3 mL 1.25 mg inhalation [id number] PRN sob 05/28/23 12/03/23 solution for nebulization cephalexin 500 mg capsule 500 mg PO QID 12/03/23 12/03/23 divalproex 500 mg tablet,extended 500 mg PO BID 12/03/23 12/03/23 release 24 hr (Depakote ER) glucagon 1 mg solution for 1 mg subcut Q20M PRN Hypoglycemia 12/03/23 12/03/23 injection (GlucaGen HypoKit) insulin glargine 100 unit/mL 35 unit subcut QAM 12/03/23 12/03/23 subcutaneous cartridge insulin glargine 100 unit/mL 75 unit subcut HS 12/03/23 12/03/23 subcutaneous cartridge lorazepam 1 mg tablet 1 mg PO BID 12/03/23 12/03/23 pantoprazole 40 mg tablet,delayed 40 mg PO QDAY 12/03/23 12/03/23 release semaglutide 0.25 mg or 0.5 mg (2 0.25 mg subcut QWEEK 12/03/23 12/03/23 mg/3 mL) subcutaneous pen injector (Ozempic) sulfamethoxazole 800 1 tab PO BID 12/03/23 12/03/23 mg-trimethoprim 160 mg tablet (Bactrim DS) tramadol 50 mg tablet 50 mg PO Q6H PRN PAIN' 12/03/23 12/03/23 Allergies Allergy/AdvReac Type Severity Reaction Status Date / Time acetaminophen Allergy Mild Nausea Verified 02/22/25 11:28 hydrocodone Allergy Mild Nausea Verified 02/22/25 11:28 Penicillins Allergy Unknown Nausea Verified 02/22/25 11:28 Review of Systems Review of Systems Narrative Review of Systems: GEN: No fever, no chills, no weight loss EYES: No discharge, no visual changes, no pain HEENT: No ear pain, no congestion, no sore throat PULM: No shortness of breath, no cough, no congestion CV: + chest pain, no dyspnea on exertion, no palpitations GI: No nausea, no vomiting, no diarrhea, no pain, no constipation : No frequency, no urgency, no dysuria MUSC/SKEL: No joint pain, no back pain SKIN: No rash PSYCH: No hallucinations, no depression HEME/LYMPH: No easy bleeding or bruising tendencies NEURO: + weakness, + headache Past Medical History Past Medical History NEUROLOGIC: Positive Cerebrovascular Accident (with left sided weakness) and Seizures; Negative Neurological Disorders CARDIAC: Positive Cardiac Disorders, Hypercholesterolemia and Hypertension; Negative Congestive Heart Failure RESPIRATORY: Negative Chronic Obstructive Pulmonary Disease (COPD) or Asthma GASTROINTESTINAL: Positive Gastrointestinal Disorders (hernia) and Diverticulitis; Negative Hepatitis GENITOURINARY: Negative Genitourinary Disorders or Renal Disease REPRODUCTIVE: Positive Previous Pregnancies MUSCULOSKELETAL: Positive Musculoskeletal Disorders (weakness from stroke-uses wheelchair) ENDOCRINE: Positive Endocrine Disorders and Diabetes Mellitus Type 2; Negative Diabetes Mellitus Type 1 HEMATOLOGIC: Negative Blood Disorders or Sickle Cell Disease PSYCHO/SOCIAL: Positive Bipolar Disorder, Depression and Anxiety OTHER HISTORY: Positive Falls, Blood Transfusions, Anesthesia Reactions (rashes) and Chicken Pox; Negative Hospitalization, Shingles, Blood Transfusion Reaction, Chemotherapy, Radiation Therapy, MRSA, Measles, Mumps or Cancer Family History FAMILY HISTORY: Negative Family Anesthesia Reaction Surgical History SURGICAL: Positive Section; Negative Cardiac Surgery, Endocrine Surgery, Abdominal Surgery or Joint Replacement Social History SMOKING STATUS: Never smoker ED Exam Narrative Physical exam: [General: Morbidly obese appears not in any acute distress Head normocephalic HEENT: Eyes pupils are PERRLA EOMs are intact mouth pink moist membranes uvula is midline swallow symmetrical phonation is normal all the subsystems HEENT are within acceptable limits Neck is supple nontender Chest equal chest rise nontender to palpation Respiratory: Clear to auscultation no wheezes crackles or rubs CV: Rate rhythm is regular no murmurs rubs or clicks Abdomen is grossly distended distended secondary to body habitus soft nontender no masses positive bowel sounds all 4 quadrants Back: No CVA tenderness no spinous process tenderness from cervical spine thoracic and lumbar spine Skin: Intact no petechiae rash induration ulceration or crepitus Extremities: Left-sided hemiaplasia Neuro: Awake alert oriented x2, person and place, Glascow coma 15 no focal deficits] Course Course Course Narrative: Review of the laboratory results show that the patient is hyperkalemic hypomagnesemic and has HARJIT which is not typical when reviewing her past. The pancytopenia is established. And this can be followed up by Dr. Guzman. But given the patient's condition would like to admit this patient for improvement in her renal function as well as her electrolyte imbalances. Patient's case discussed with the resident for Dr. Tingle who agrees to accept the patient for admission. Quality Measures none Orders Category Date Time Status EKG (ED ONLY) *Do not use* NOW Care 02/22/25 12:00 Completed EKG (ED Only) Stat Exams 02/22/25 12:00 Draft XR chest 1V Stat Exams 02/22/25 12:00 Completed B-Type Natriuretic Peptide Stat Lab 02/22/25 12:18 Completed CBC Stat Lab 02/22/25 12:18 Completed Comprehensive Metabolic Panel Stat Lab 02/22/25 12:18 Completed Drug Screen,Urine Stat Lab 02/22/25 15:08 Completed LDH (Lactate Dehydrogenase) Stat Lab 02/22/25 12:18 Completed Magnesium Stat Lab 02/22/25 12:18 Completed Partial Thromboplastin Time Stat Lab 02/22/25 12:18 Completed Prothrombin Time with INR Stat Lab 02/22/25 12:18 Completed Troponin I Stat Lab 02/22/25 12:18 Completed Calcium Gluconate 10% Inj Med 02/22/25 13:27 Discontinued 1 gm IV X1 ONE Dextrose 50% Syr [D50w Syringe Abboject] Med 02/22/25 13:27 Discontinued 50 ml IVP X1 ONE Insulin Regular Med 02/22/25 13:27 Discontinued 5 unit IV X1 ONE Magnesium Sulfate 4 GM Ivpb [Magnesium Sulfate Ivpb] Med 02/22/25 13:11 Discontinued 4 gm in 50 ml IV X1 Vital Signs Vital signs: Vital Signs Temperature 98.3 F 02/22/25 11:41 Pulse Rate 92 02/22/25 11:41 Respiratory Rate 18 02/22/25 11:41 Blood Pressure 137/76 H 02/22/25 11:41 Pulse Oximetry (%) 95 02/22/25 11:41 Oxygen Delivery Method Room Air 02/22/25 11:41 Discharge Plan Plan Patient Disposition: Other Care w/in Hosp ([facility]/JAVIER) Problem List Clinical Impression: HARJIT (acute kidney injury), Hyperkalemia, Hypomagnesemia PA/EDUCATIONAL RECRUITER Supervising Physician PA/EDUCATIONAL RECRUITER Supervising Physician: Ken Ureña ENP [facility] Clinical Information Provided by: patient and EMS [facility] Chronic Illness/Social Conditions Explain: Anemia thrombocytopenia cirrhosis EKG Interpretation EKG #1: EKG Interpretation: EKG performed at 1258 shows a ventricular rate of 69. Normal 200 QRS 115 QTc 429 this is sinus rhythm left axis deviation. Labs Labs: interpreted by ak Lab(s) Interpretation(s): CBC shows pancytopenia with a white blood cell count of 3000 H&H of 7.9 and 24.9 platelets at 62. Coags show PT of 12.4 INR 1.2 PTT of 26.4 CMP shows a potassium of 5.4 creatinine 1.5 BUN of 22. Glucose of 201 mag at 1.2. Alk phos of 257 all other electrolytes are within acceptable limits Troponin BMP within acceptable limits Imaging Imaging interpretation: interpreted by me Imaging Interpretation(s): Chest x-ray is negative for any acute finding. Medication Administration(s) Medication Administration History Acetaminophen (Acetaminophen 325 Mg Tablet) 650 mg PO Q6H PRN PRN Reason: Fever >100.4 or pain 1-3 Stop: 03/24/25 15:20 Aspirin (Aspirin Ec 81 Mg Tabec) 81 mg PO QDAY FILI Stop: 03/25/25 08:59 Atorvastatin Calcium (Atorvastatin Calcium 20 Mg Tablet) 40 mg PO HS FILI Stop: 03/24/25 20:59 Dextrose (Dextrose 50%-Water Inj 50 Ml Syringe) 25 ml IV Q15MIN PRN PRN Reason: BG 50-70 responsive npo pt Stop: 03/24/25 16:11 Dextrose (Dextrose 50%-Water Inj 50 Ml Syringe) 50 ml IV Q15MIN PRN PRN Reason: BG <50 OR BG <70 & pt unresponsive Stop: 03/24/25 16:11 Divalproex Sodium (Divalproex Sod Dr 500 Mg Tablet.Dr) 500 mg PO BID FILI Stop: 03/24/25 20:59 Gabapentin (Gabapentin 300 Mg Capsule) 300 mg PO TID FILI Stop: 03/24/25 21:59 Glucagon (Glucagon Inj 1 Mg Vial) 1 mg IM Q15MIN PRN PRN Reason: BG <70, and no IV access Sodium Chloride (Ns) 1,000 mls @ 125 mls/hr IV .Q8H FILI Stop: 03/24/25 13:52 Last Admin: 02/22/25 15:59 Dose: 125 mls/hr Documented By: SOLEDAD Insulin Degludec (Insulin Degludec 5 Unit/0.05 Ml (Per 5 Units)) 35 unit SC HS FILI Stop: 03/24/25 20:59 Insulin Human Lispro (Insulin Lispro (Admelog) 1 Unit/0.01 Ml Unit) 0 unit SC AC FILI; Protocol Stop: 03/24/25 16:59 Last Admin: 02/22/25 16:51 Dose: Not Given Documented By: NARENDRA Non-Admin Reason: Per Protocol Metoprolol Succinate (Metoprolol Succinate Xl 25 Mg Tabcr) 50 mg PO QDAY [facility] Stop: 03/24/25 16:59 Last Admin: 02/22/25 17:34 Dose: 50 mg Documented By: NARENDRA Ondansetron HCl (Ondansetron Inj 2 Mg/Ml Inj 2 Ml) 4 mg IVP Q6H PRN; Protocol PRN Reason: NAUSEA OR VOMITING Stop: 03/24/25 15:20 Pantoprazole Sodium (Pantoprazole 40 Mg Tablet) 40 mg PO QDAY [facility] Stop: 03/25/25 08:59 Discontinued Medications Calcium Gluconate (Calcium Gluconate 10% Inj 1 Gm/10 Ml Vial) 1 gm IV X1 ONE Stop: 02/22/25 13:28 Last Admin: 02/22/25 13:41 Dose: 1 gm Documented By: SOLEDAD Dextrose (Dextrose 50%-Water Inj 50 Ml Syringe) 50 ml IVP X1 ONE Stop: 02/22/25 13:28 Last Admin: 02/22/25 13:41 Dose: 50 ml Documented By: SOLEDAD Heparin Sodium (Porcine) (Heparin Sod Inj 5000 Unit/Ml Vial) 5,000 unit SC BID [facility] Stop: 03/08/25 20:59 Magnesium Sulfate (Magnesium Sulfate Ivpb) 4 gm in 50 mls @ 12.5 mls/hr IV X1 ONE Stop: 02/22/25 17:10 Last Admin: 02/22/25 13:41 Dose: 12.5 mls/hr Documented By: SOLEDAD Sodium Chloride (Ns) 1,000 mls @ 80 mls/hr IV .[id number] [facility] Stop: 03/24/25 13:52 Last Admin: 02/22/25 14:46 Dose: 80 mls/hr Documented By: SOLEDAD Insulin Human Regular (Insulin Hum Regular 1 Unit/0.01 Ml (Per Unit)) 5 unit IV X1 ONE Stop: 02/22/25 13:28 Last Admin: 02/22/25 13:42 Dose: 5 unit Documented By: SOLEDAD Co-signed By: SHLOMO
--- NOTE | 2025-02-22 12:00 | XR_ITS ---
EXAMINATION: AP chest single view TECHNIQUE: AP portable semiupright chest single view Date and time: February 22, 2025, 1214 hours, comparison May 30, 2023 INDICATIONS: Chest pain today. FINDINGS: Mild prominence left ventricle Reduced inspiratory effort. No pneumonia or pulmonary edema. Moderate osteopenia IMPRESSION: No pneumonia or pulmonary edema
--- NOTE | 2025-02-22 12:00 | EKG_ITS ---
[facility] Test Date: 2025-02-22 Pat Name: GIA RESENDIZ Department: Room: - Gender: Female Squad Leader: : 1970 Requested By: Ken Menendez Order Number: [id number] Reading MD: Ken Menendez Measurements Intervals [place] Rate: 69 P: 56 [place]: 200 QRS: -40 QRSD: 115 T: 94 QT: 410 QTc: 441 Interpretive Statements SINUS RHYTHM LEFT AXIS DEVIATION [QRS AXIS < -30] VOLTAGE CRITERIA FOR LVH [MEETS CRITERIA IN ONE OF: R(aVL), S(V1), R(V5), R(V5/V6)+S(V1)] POSSIBLE ANTERIOR MYOCARDIAL INFARCTION , OF INDETERMINATE AGE [30 ms Q WAVE IN V3/V4, OR R < 0.2 mV IN V4] No previous ECG available for comparison /[id number]/S0/[id number]
[2025-02-22 12:33] LABS: Basophils # (Auto) 0.0 Thou/mm3 (0.0-0.2); Basophils % (Auto) 1 % (0-2.5); Eosinophils # (Auto) 0.1 Thou/mm3 (0.0-0.5); Eosinophils % (Auto) 4 % (0-10); Hematocrit 24.9 % (36.0-46.0); Immature Granulocytes Auto 0.11 Thou/mm3 (0.00-0.00); Lymphocytes # (Auto) 0.9 Thou/mm3 (1.0-4.8); Lymphocytes % (Auto) 30 % (10-50); Mean Corpuscular HGB Conc 31.7 g/dl (31.0-37.0); Mean Corpuscular Hemoglobin 31.7 pg (25.0-35.0); Mean Corpuscular Volume 100 fL (80-100); Monocytes # (Auto) 0.3 Thou/mm3 (0.0-0.8); Monocytes % (Auto) 9 % (0-12); Neutrophils # (Auto) 1.6 Thou/mm3 (1.8-7.7); Neutrophils % (Auto) 53 % (37-80); Nucleated Red Blood Cell # 0.02 Thou/mm3 (0.00-0.00); Nucleated Red Blood Cell % 1 /100 WBC (0); RDW Standard Deviation 56.2 fL (36.4-46.3); Red Blood Count 2.49 Miln/mm3 (4.00-5.20); White Blood Count 3.0 Thou/mm3 (3.6-11.0)
[2025-02-22 12:43] VITALS: BMI 46.3
[2025-02-22 12:48] LABS: INR 1.2 (0.9-1.3); Partial Thromboplastin Time 26.9 Seconds (22.0-36.0); Prothrombin Time 12.4 Seconds (9.0-12.2)
[2025-02-22 12:49] LABS: Hemoglobin 7.9 g/dL (12.0-16.0); Platelet Count 62 Thou/mm3 (140-440)
[2025-02-22 12:57] LABS: Alanine Aminotransferase 40 U/L (10-49); Albumin, Serum 4.3 gm/dL (3.5-5.0); Albumin/Globulin Ratio 1.6 (1.2-2.2); Alkaline Phosphatase 257 U/L (46-116); Anion Gap 12 (7-16); Aspartate Amino Transferase 61 U/L (0-34); BUN/Creatinine Ratio 15 Ratio (12-20); Bilirubin,Total 0.5 mg/dL (0.3-1.2); Blood Urea Nitrogen 22 mg/dL (9-23); Calcium 8.7 mg/dL (8.3-10.6); Calcium (Corrected) 8.7 mg/dL (8.5-10.1); Carbon Dioxide 24.6 mMol/L (20.0-31.0); Chloride 104 mMol/L (98-107); Creatinine (Component) 1.5 mg/dL (0.6-1.3); Estimated Creatinine Clearance 40.2 mL/min (>60); Globulin 2.7 gm/dL (2.3-3.5); Glucose 201 mg/dL (74-106); LDH (Lactate Dehydrogenase) 175 U/L (120-246); Magnesium 1.2 mg/dL (1.6-2.6); Osmolality,Calculated 290 (275-295); Potassium 5.4 mMol/L (3.4-5.1); Sodium 141 mMol/L (136-145); Total Protein 7.0 gm/dL (5.7-8.2); Troponin I < 0.020 ng/mL (0.0-0.045); eGFR 41 See Note
[2025-02-22 12:59] LABS: B-Type Natriuretic Peptide 25 pg/mL (0-100)
[2025-02-22] MEDS: DEXTROSE 50%-WATER INJ 50 ML SYRINGE IVP (13:41)
[2025-02-22] MEDS: Magnesium Sulfate 4 GM Ivpb 4 GM/50 ML BAG IV (13:41)
[2025-02-22] MEDS: CALCIUM GLUCONATE 10% INJ 1 GM/10 ML VIAL IV (13:41)
[2025-02-22] MEDS: INSULIN HUM REGULAR 1 UNIT/0.01 ML (PER UNIT) 5 UNIT IV (13:42)
[2025-02-22 14:27] LABS: Albumin, Serum 4.0 gm/dL (3.5-5.0); Anion Gap 12 (7-16); BUN/Creatinine Ratio 16 Ratio (12-20); Blood Urea Nitrogen 25 mg/dL (9-23); Calcium 8.9 mg/dL (8.3-10.6); Calcium (Corrected) 8.9 mg/dL (8.5-10.1); Carbon Dioxide 23.5 mMol/L (20.0-31.0); Chloride 104 mMol/L (98-107); Creatinine (Component) 1.6 mg/dL (0.6-1.3); Estimated Creatinine Clearance 37.7 mL/min (>60); Glucose 321 mg/dL (74-106); Osmolality,Calculated 293 (275-295); Phosphorous 4.0 mg/dL (2.4-5.1); Potassium 5.1 mMol/L (3.4-5.1); Sodium 139 mMol/L (136-145); eGFR 38 See Note
[2025-02-22] MEDS: SODIUM CHLORIDE 0.9% 1000 ML 1,000 ML 80 ML IV (14:46)
[2025-02-22 14:53] LABS: Slide Review Platelets confirmed
[2025-02-22 14:55] VITALS: BP 160/86; PULSE 75; RESP 15; O2SAT 98
--- NOTE | 2025-02-22 15:22 | PC.NURSE ---
PER LAB, THE URINE SAMPLE WE RECEIVED IS NOT ENOUGH TO RUN UA BUT WE ARE ABLE TO DO THE URINE CULTURE AND URINE DRUG SCREEN.
[2025-02-22 15:37] LABS: Amphetamine/Methamp Scrn,U Negative (Negative); Barbiturate Screen,Urine Negative (Negative); Benzodiazepines Screen,Urine Negative (Negative); Benzoylecgonine Screen, Ur Negative (Negative); Fentanyl Screen,Urine Negative (Negative); Opiate Screen,Urine Negative (Negative); THC Screen,Urine Negative (Negative)
--- NOTE | 2025-02-22 15:38 | ESHP_ITS ---
<Statement entered by Ger Mcqueen MD - 02/23/25 16:07> Patient Estonian-speaking and poor historian. 54-year-old female with significant past medical history of CVA, cirrhosis, pancytopenia following up with Dr. Poon in the cancer center presented to the hospital with chief complaints of weakness, dizziness, headache and fatigue. Noted to have HARJIT with creatinine 1.5, potassium 5.5. Patient was given IV fluids. Admitted in observation in view of monitoring of renal functions and urine output. I have personally seen and examined the patient, agree with residents assessment and plan Patient plan of care was discussed with the attending physician, Dr. Alpesh Mcqueen, PGY2 Documentation for date of: 02/22/25 HPI History of Present Illness Chief complaint: Dizziness History of present illness: Venecia Bhatia is a 54-year-old female with a past medical history of CVA (left-sided hemiparesis), cirrhosis, pancytopenia, and obesity, presenting with weakness, dizziness, headache, and general fatigue. The patient did not sleep the previous night and was reported to be weak at the cancer treatment center, prompting referral to the ER for evaluation. Patient is a poor historian, she is saying she is being tired and her speech is incomprehensible , which may be secondary to her underlying medical conditionsn. The patient denies fever, chills, nausea, or vomiting. She has a history of anemia and pancytopenia, and recent lab results indicate electrolyte imbalances and worsening renal function, which could be contributing to her current symptoms. 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 * Cirrhosis (likely from LUCIO) * Pancytopenia (likely secondary to hepatosplenomegaly) * Obesity * Schizophrenia * Diverticulosis, Hemorrhoids * Chronic Liver Disease (hepatosplenomegaly) Medications: Pending med recs Allergies: * Acetaminophen * Hydrocodone-acetaminophen * Penicillamine Exam Vital Signs Temp Pulse Resp BP Pulse Ox O2 Del Method 98.3 F 75 15 160/86 H 98 Room Air 02/22/25 11:41 02/22/25 14:55 02/22/25 14:55 02/22/25 14:55 02/22/25 14:55 02/22/25 11:41 Narrative Exam General: Morbidly obese, not in acute distress Head: Normocephalic, atraumatic HEENT: PERRLA, EOMs intact, moist mucous membranes, uvula midline, normal phonation Neck: Supple, nontender Respiratory: Clear to auscultation bilaterally, no wheezes, crackles, or rubs Cardiovascular: Regular rhythm, no murmurs or extra sounds Abdomen: Grossly distended (due to obesity), soft, nontender, no masses, positive bowel sounds Back: No CVA tenderness, no spine tenderness Extremities: Left-sided hemiplegia (residual from stroke), no cyanosis or edema Skin: Intact, no rashes or lesions Neurologic: A&O x2 Results: Labs 02/22/25 12:18 02/22/25 14:02 Labs: Short CBC 02/22/25 Range/Units 12:18 WBC 3.0 L (3.6-11.0) Thou/mm3 Hgb 7.9 L (12.0-16.0) g/dL Hct 24.9 L (36.0-46.0) % Plt Count 62 L (140-440) Thou/mm3 BMP 02/22/25 02/22/25 12:18 14:02 Sodium 141 139 Potassium 5.4 H 5.1 Chloride 104 104 Carbon Dioxide 24.6 23.5 BUN 22 25 H Creatinine 1.5 H 1.6 H Glucose 201 H 321 H D Calcium 8.7 8.9 Cardiac Enzymes 02/22/25 Range/Units 12:18 Troponin I < 0.020 (0.0-0.045) ng/mL Liver Function 02/22/25 02/22/25 Range/Units 12:18 14:02 Total Bilirubin 0.5 (0.3-1.2) mg/dL AST 61 H (0-34) U/L ALT 40 (10-49) U/L Alkaline Phosphatase 257 H (46-116) U/L Albumin 4.3 4.0 (3.5-5.0) gm/dL Urine 02/22/25 Range/Units 15:08 Urine Color Cancelled Urine Clarity Cancelled Urine pH Cancelled Ur Specific Darling Cancelled Urine Protein Cancelled Urine Glucose (UA) Cancelled Quality Measures Quality Measures VTE prophylaxis Medications Home Medications and Allergies Home Medications ?Medication ?Instructions ?Recorded ?Confirmed ?Type aripiprazole 10 mg tablet (Abilify) 15 mg PO HS [place] r Disorder #0 03/29/14 12/03/23 History tabs gabapentin 300 mg capsule 300 mg PO TID PRN PAIN #0 ca ps 03/29/14 12/03/23 History insulin lispro 100 unit/mL See Protocol subcut AC PRN 03/29/14 12/03/23 History subcutaneous solution (Humalog DIABETES #0 vials U-100 Insulin) metformin 500 mg tablet 1,000 mg PO BIDAC Diabetes # 0 tabs 03/29/14 12/03/23 History (Glucophage) duloxetine 30 mg capsule,delayed 60 mg PO BID #0 caps 07/13/14 12/03/23 History release (Cymbalta) lisinopril 20 mg tablet (Prinivil) 20 mg PO QDAY #0 ta bs 07/13/14 12/03/23 History buspirone 7.5 mg tablet 7.5 mg PO BID 12/26/2012/02 History lactulose 10 gram/15 mL oral 30 ml PO TID 12/26/20 History solution metoprolol succinate 50 mg capsule 50 mg PO QDAY 12/2612/03/23 History sprinkle, ext. release 24 hr allopurinol 100 mg tablet 100 mg PO QDAY 05/28/2311/06 History atorvastatin 40 mg tablet 40 mg PO HS 05/28/23 4 History latanoprost 0.005 % eye drops 1 drp ophthalmic (eye) Q PM 05/28/23 12/03/23 History levalbuterol HCl 1.25 mg/3 mL 1.25 mg inhalation Q6HRP RN PRN sob 05/28/23 12/03/23 History solution for nebulization cephalexin 500 mg capsule 500 mg PO QID 12/03/2312/02 History divalproex 500 mg tablet,extended 500 mg PO BID 12/03/23 History release 24 hr (Depakote ER) glucagon 1 mg solution for 1 mg subcut Q20M PRN Hypogl ycemia 12/03/23 12/03/23 History injection (GlucaGen HypoKit) insulin glargine 100 unit/mL 35 unit subcut QAM 12/03/23 History subcutaneous cartridge insulin glargine 100 unit/mL 75 unit subcut HS 4 12/03/23 History subcutaneous cartridge lorazepam 1 mg tablet 1 mg PO BID 12/03/23 4 History pantoprazole 40 mg tablet,delayed 40 mg PO QDAY 12/03/23 History release semaglutide 0.25 mg or 0.5 mg (2 0.25 mg subcut QWEEK 12/03/23 12/03/23 History mg/3 mL) subcutaneous pen injector (Ozempic) sulfamethoxazole 800 1 tab PO BID 12/03/23 History mg-trimethoprim 160 mg tablet (Bactrim DS) tramadol 50 mg tablet 50 mg PO Q6H PRN PAIN' 12/0212/03/23 History Allergies Allergy/AdvReac Type Severity Reaction Status Date / Time acetaminophen Allergy Mild Nausea Verified 02/22/25 11:28 hydrocodone Allergy Mild Nausea Verified 02/22/25 11:28 Penicillins Allergy Unknown Nausea Verified 02/22/25 11:28 Visit Medications Acetaminophen (Acetaminophen 325 Mg Tablet) 650 mg PO Q6H PRN PRN Reason: Fever >100.4 or pain 1-3 Stop: 03/24/25 15:20 Heparin Sodium (Porcine) (Heparin Sod Inj 5000 Unit/Ml Vial) 5,000 unit SC BID [facility] Stop: 03/08/25 20:59 Magnesium Sulfate (Magnesium Sulfate Ivpb) 4 gm in 50 mls @ 12.5 mls/hr IV X1 ONE Stop: 02/22/25 17:10 Last Admin: 02/22/25 13:41 Dose: 12.5 mls/hr Sodium Chloride (Ns) 1,000 mls @ 125 mls/hr IV .Q8H [facility] Stop: 03/24/25 13:52 Ondansetron HCl (Ondansetron Inj 2 Mg/Ml Inj 2 Ml) 4 mg IVP Q6H PRN; Protocol PRN Reason: NAUSEA OR VOMITING Stop: 03/24/25 15:20 Pantoprazole Sodium (Pantoprazole 40 Mg Tablet) 40 mg PO QDAY [facility] Stop: 03/25/25 08:59 Discontinued Medications Calcium Gluconate (Calcium Gluconate 10% Inj 1 Gm/10 Ml Vial) 1 gm IV X1 ONE Stop: 02/22/25 13:28 Last Admin: 02/22/25 13:41 Dose: 1 gm Dextrose (Dextrose 50%-Water Inj 50 Ml Syringe) 50 ml IVP X1 ONE Stop: 02/22/25 13:28 Last Admin: 02/22/25 13:41 Dose: 50 ml Sodium Chloride (Ns) 1,000 mls @ 80 mls/hr IV .[id number] FILI Stop: 03/24/25 13:52 Last Admin: 02/22/25 14:46 Dose: 80 mls/hr Insulin Human Regular (Insulin Hum Regular 1 Unit/0.01 Ml (Per Unit)) 5 unit IV X1 ONE Stop: 02/22/25 13:28 Last Admin: 02/22/25 13:42 Dose: 5 unit Assessment & Plan Plan 54F with history of CVA with left hemiplegia, cirrhosis from LUCIO, chronic pancytopenia, DM2, HTN, HLD, seizure disorder, and schizophrenia, admitted for weakness, dizziness, fatigue, and incomprehensible speech with labs notable for HARJIT, hypomagnesemia, mild hyperkalemia, hyperglycemia, and baseline pancytopenia. # Acute Kidney Injury (HARJIT) Cr 1.6 from 1.5, GFR 38; likely prerenal from poor PO intake and dehydration. Plan: * Continue NS 125 mL/hr * Daily BMP * Avoid nephrotoxic meds (hold lisinopril, hold NSAIDs) * Monitor urine output (I/O) * UA pending # Hypomagnesemia (Mg 1.2), # Hyperkalemia K improved 5.4 -> 5.1. Plan: * Replace Mg with 4g IV (already started) * Recheck Mg and K at 1500 * Continuous telemetry * Avoid K-sparing meds # Pancytopenia (chronic)Likely secondary to liver disease WBC 3.0, Hgb 7.9, platelets 62 (baseline low). Likely from cirrhosis + hepatosplenomegaly. Plan: * Daily CBC * Transfuse if Hgb <7 or platelets <10k (or <50k if bleeding) * Oncology follow-up (Dr. Guzman) # Generalized Weakness, Dizziness, Fatigue Likely multifactorial: anemia, HARJIT, electrolyte imbalance, hyperglycemia, cirrhosis-related fatigue. Speech incomprehensible likely due to metabolic derangements + baseline neuro deficits. Unknown baseline. Plan: * Correct electrolytes * Hydration * Glucose control * Neuro checks q4h # Hyperglycemia, DM2 Glucose 321 on arrival. On Lantus 75U at baseline and sliding scale at SNF. Plan: * Start degludec 35 units nightly * Start sliding scale insulin TID AC + HS * Hold metformin (HARJIT) * Carb-controlled diet # Cirrhosis (LUCIO) Mildly elevated AST (61), Alk Phos (57), albumin normal. Plan: * Trend LFTs * Avoid hepatotoxic meds * Continue pantoprazole # Anemia (chronic) Hgb 7.9; baseline low from chronic disease + iron deficiency. Plan: * Will hold ferrous sulfate for now * Trend Hgb daily * Transfuse if <7 or symptomatic # Seizure Disorder On Depakote and gabapentin at baseline. Poor speech today but no seizure activity. Plan: * Resume Depakote and gabapentin * Seizure precautions * Consider valproate level if mental status worsens # Hypertension # Hyperlipidemia Plan: * Resume metoprolol succinate * HOLD lisinopril due to HARJIT * Resume atorvastatin # Schizophrenia / Anxiety Baseline on Abilify, lorazepam, buspirone, Cymbalta. Plan: * Resume Abilify, buspirone, Cymbalta once med rec's are back * Resume lorazepam at home dose once med rec's are back # GERD Plan: * Continue pantoprazole 40 mg BID Health Maintenance Disposition: Admit to telemetry Diet: Carb-controlled diet Feeding: PO diet as tolerated Thromboprophylaxis: SCDs only (platelets 62) GI Prophylaxis: Pantoprazole 40 mg Neuro Checks: q4h Code Status: Full Code ----- Plan discussed with attending physician Dr. Betts and senior resident Dr. Charisse Parra MD PGY-1 Internal Medicine Attending Provider Attestation/Addendum I or my resident physicians have discussed care with the ED physician and I have made the decision to admit. I have discussed and was present for the essential components of the history, physical examination, diagnosis, and treatment plan with the resident. I agree with the patient's care as documented by the resident and amended herein by me. Richard Betts DO. Although this document has been carefully reviewed, there may still be some phonetic and other typographical errors. These errors are purely grammatical due to imperfections in the software program and should not be construed in any way to compromise the substance of the patient's medical care during this visit.
--- NOTE | 2025-02-22 15:55 | PC.NURSE ---
IN and Out cath performed for UA collection. approx 5 ml of purulent urine obtain. Pt stated that she is not able urinate for a while.
[2025-02-22] MEDS: SODIUM CHLORIDE 0.9% 1000 ML 1,000 ML 125 ML IV ×2 (15:59→22:22)
[2025-02-22 16:28] VITALS: BMI 39.8
--- NOTE | 2025-02-22 16:29 | PC.NURSE ---
Patient received from ER Nurse Renate, patient unable to answer admission questions due to AMS. Caregiver from snf not at bedside.
--- NOTE | 2025-02-22 16:31 | PC.NURSE ---
Hand off report given to Polina QUINONES from [facility]. Pt is aware of transfer to floor but was reluctant about not going back to [facility], I explained to her that she will return to [facility] once she is ready to be discharge. Pt verbalized understanding and complied.
[2025-02-22 16:38] VITALS: BP 161/67; PULSE 75; RESP 16; TEMP 36.2; O2SAT 99
--- NOTE | 2025-02-22 17:12 | PC.NURSE ---
Spoke to Arnold at [facility]. Arnold states he will fax over patient's current medication list and will have a Nurse call back to answer patient's admission questions.
[2025-02-22 17:34] VITALS: BP 161/67; PULSE 75
[2025-02-22] MEDS: METOPROLOL SUCCINATE XL 25 MG TABCR 50 MG PO (17:34)
[2025-02-22 20:00] VITALS: BP 139/85; PULSE 72; RESP 17; TEMP 36.3; O2SAT 97
[2025-02-22] MEDS: GABAPENTIN 300 MG CAPSULE PO (22:12)
[2025-02-22] MEDS: ACETAMINOPHEN 325 MG TABLET 650 MG PO (22:13)
[2025-02-22] MEDS: ATORVASTATIN CALCIUM 20 MG TABLET 40 MG PO (22:13)
[2025-02-22] MEDS: DIVALPROEX SOD DR 500 MG TABLET.DR PO (22:13)
[2025-02-22] MEDS: INSULIN DEGLUDEC 5 UNIT/0.05 ML (PER 5 UNITS) 35 UNIT SC (22:19)
[2025-02-23] VITALS (7 sets, daily range): BP systolic 133–179; BP diastolic 60–81; PULSE 63–73; RESP 16–18; TEMP 36.1–36.4; O2SAT 95–98
[2025-02-23] MEDS: MELATONIN 3 MG TABLET 6 MG PO (01:02)
[2025-02-23 05:17] LABS: Basophils # (Auto) 0.0 Thou/mm3 (0.0-0.2); Basophils % (Auto) 1 % (0-2.5); Eosinophils # (Auto) 0.1 Thou/mm3 (0.0-0.5); Eosinophils % (Auto) 4 % (0-10); Hematocrit 24.6 % (36.0-46.0); Immature Granulocytes Auto 0.12 Thou/mm3 (0.00-0.00); Lymphocytes # (Auto) 0.9 Thou/mm3 (1.0-4.8); Lymphocytes % (Auto) 35 % (10-50); Mean Corpuscular HGB Conc 31.7 g/dl (31.0-37.0); Mean Corpuscular Hemoglobin 31.5 pg (25.0-35.0); Mean Corpuscular Volume 99 fL (80-100); Monocytes # (Auto) 0.2 Thou/mm3 (0.0-0.8); Monocytes % (Auto) 8 % (0-12); Neutrophils # (Auto) 1.2 Thou/mm3 (1.8-7.7); Neutrophils % (Auto) 48 % (37-80); Nucleated Red Blood Cell # 0.00 Thou/mm3 (0.00-0.00); Nucleated Red Blood Cell % 0 /100 WBC (0); RDW Standard Deviation 55.4 fL (36.4-46.3); Red Blood Count 2.48 Miln/mm3 (4.00-5.20); White Blood Count 2.5 Thou/mm3 (3.6-11.0)
[2025-02-23] MEDS: SODIUM CHLORIDE 0.9% 1000 ML 1,000 ML 125 ML IV (05:39)
[2025-02-23] MEDS: GABAPENTIN 300 MG CAPSULE PO ×3 (05:40→21:12)
[2025-02-23 05:42] LABS: Alanine Aminotransferase 34 U/L (10-49); Albumin, Serum 4.0 gm/dL (3.5-5.0); Albumin/Globulin Ratio 1.6 (1.2-2.2); Alkaline Phosphatase 240 U/L (46-116); Anion Gap 10 (7-16); Aspartate Amino Transferase 44 U/L (0-34); BUN/Creatinine Ratio 16 Ratio (12-20); Bilirubin,Total 0.5 mg/dL (0.3-1.2); Blood Urea Nitrogen 22 mg/dL (9-23); Calcium 8.6 mg/dL (8.3-10.6); Calcium (Corrected) 8.6 mg/dL (8.5-10.1); Carbon Dioxide 26.3 mMol/L (20.0-31.0); Chloride 106 mMol/L (98-107); Creatinine (Component) 1.4 mg/dL (0.6-1.3); Estimated Creatinine Clearance 39.4 mL/min (>60); Globulin 2.5 gm/dL (2.3-3.5); Glucose 140 mg/dL (74-106); Magnesium 1.6 mg/dL (1.6-2.6); Osmolality,Calculated 288 (275-295); Phosphorous 3.7 mg/dL (2.4-5.1); Potassium 4.6 mMol/L (3.4-5.1); Sodium 142 mMol/L (136-145); Thyroid Stimulating Hormone 12.15 uIU/mL (0.55-4.78); Total Protein 6.5 gm/dL (5.7-8.2); eGFR 45 See Note
[2025-02-23 06:16] LABS: Hemoglobin 7.8 g/dL (12.0-16.0); Platelet Count 59 Thou/mm3 (140-440)
[2025-02-23 08:10] LABS: Slide Review Platelets confirmed
[2025-02-23 08:58] LABS: Free T4 (Free Thyroxine) 1.25 ng/dL (0.89-1.76)
[2025-02-23] MEDS: PANTOPRAZOLE 40 MG TABLET PO (09:20)
[2025-02-23] MEDS: DULoxetine HCL 30 MG CAPSULE 60 MG PO ×2 (09:20→21:13)
[2025-02-23] MEDS: DIVALPROEX SOD DR 500 MG TABLET.DR PO ×2 (09:20→21:18)
[2025-02-23] MEDS: Magnesium Sulfate 4 GM Ivpb 4 GM/50 ML BAG IV (09:20)
[2025-02-23] MEDS: METOPROLOL SUCCINATE XL 25 MG TABCR 50 MG PO (09:21)
[2025-02-23] MEDS: ASPIRIN EC 81 MG TABEC PO (09:21)
[2025-02-23 09:56] LABS: Collection Type, Urine Clean Catch; Squamous Epithelial Cell,Urine 0 /hpf (0-5)
[2025-02-23 10:00] LABS: Bilirubin,Urine Negative (Negative); Blood,Urine Negative (Negative); Clarity,Urine Clear (Clear/Hazy); Color,Urine Lt-Yellow (Lt Yel-Yel); Culture Indicated,Urine Not Indicated; Glucose, Urine Negative (Negative); Ketones,Urine Negative (Negative); Leukocyte Esterase,Urine Negative (Negative); Nitrite,Urine Negative (Negative); PH,Urine 6.5 (5.0-7.0); Protein,Urine Negative (Neg - Trace); RBC,Urine 1 /hpf (0-3); Specific Gravity,Urine 1.011 (1.001-1.035); Urobilinogen,Urine Negative mg/dL (0.0-1.0); WBC,Urine < 1 /hpf (0-5)
--- NOTE | 2025-02-23 10:31 | PC.SS ---
Patient Venecia Mccormack is a 54 Year old female admitted for HARJIT. SS met with patient at bedside to discuss discharge plan and verify demographic information, however did not appear alert and oriented. SS contacted Catalina from [facility]. 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 Catalina informed SS that [facility] is the agency that makes Medical Decisions. Catalina reported patient utilizes a wheel chair. Patient Does need assistance completing all ADL's. At time of discharge patient will return back to [facility]. SS will assist with transportation. Discharge plan: [facility] Next of Kin: [facility]
[2025-02-23] MEDS: SODIUM CHLORIDE 0.9% 1000 ML 1,000 ML 100 ML IV (11:26)
--- NOTE | 2025-02-23 14:46 | PD.RESDS ---
Planned Discharge Date 02/23/25 DS: Providers Provider Date of admission: 02/22/25 13:41 Primary care physician: Physician No Primary/Family Admitting Provider: Peewee Betts DO Attending Provider on Admission: Peewee Betts DO Attending Provider on DC: Peewee Betts DO Discharging Provider: Cuco Parra MD Hospital Course Hospital Course Hospital course: Venecia Bhatia is a 54-year-old female with a past medical history of CVA (left-sided hemiparesis), cirrhosis, pancytopenia, and obesity, presenting with weakness, dizziness, headache, and general fatigue. The patient did not sleep the previous night and was reported to be weak at the cancer treatment center, prompting referral to the ER for evaluation. Patient is a poor historian, she is saying she is being tired and her speech is incomprehensible , which may be secondary to her underlying medical conditionsn. The patient denies fever, chills, nausea, or vomiting. She has a history of anemia and pancytopenia, and recent lab results indicate electrolyte imbalances and worsening renal function, which could be contributing to her current symptoms. Past Medical History: Cerebrovascular Accident (CVA) with residual left-sided hemiparesis Cirrhosis (likely from LUCIO) Pancytopenia (likely secondary to hepatosplenomegaly) Obesity Schizophrenia Diverticulosis, Hemorrhoids Chronic Liver Disease (hepatosplenomegaly) Medications: Pending med recs Allergies: Acetaminophen Hydrocodone-acetaminophen Penicillamine Time Spent with Patient Time attestation: Total time spent providing and/or coordinating discharge services: Exam Vital Signs Temp Pulse Resp BP Pulse Ox O2 Del Method 97.5 F 67 16 151/73 H 98 Room Air 02/23/25 11:57 02/23/25 11:57 02/23/25 11:57 02/23/25 11:57 02/23/25 11:57 02/23/25 11:57 Discharge Plan Problem List Was Problem List Reviewed/Reconciled?: Yes Plan Patient Disposition: Xfer Skilled Nsg Fac (SNF) Care Plan Goals: Discharge Instructions: -Continue all home medications as previously prescribed. -Stop lisinopril for now. -Follow up with primary care in 1 week. -Follow up with oncology (Dr. Guzman) as scheduled. -Follow up with GI outpatient for cirrhosis from LUCIO. -Drink plenty of fluids and stay well hydrated. -Monitor blood sugars closely and take insulin as directed. -Headache may be treated with Tylenol as needed. -Return to ER for fever, worsening weakness, confusion, chest pain, shortness of breath, or inability to tolerate PO intake. Prescriptions/Referrals Prescriptions/Med Rec: Continued metformin [Glucophage] 500 MG tablet 1,000 mg PO BIDAC Qty: 0 gabapentin 300 MG capsule 300 mg PO TID PRN (Reason: PAIN) Qty: 0 insulin lispro [Humalog U-100 Insulin] 100 U/ML solution See Protocol Sub-Q AC PRN (Reason: DIABETES) Qty: 0 Protocol: Insulin Corrective High-Dose Regimen Condition: Fingerstick Blood Glucose Dose/Route: Insulin Units Condition: 141-180 mg/dl Dose/Route: 6 units/SQ Condition: 181-220 mg/dl Dose/Route: 8 units/SQ Condition: 221-260 mg/dl Dose/Route: 10 units/SQ Condition: 261-300 mg/dl Dose/Route: 12 units/SQ Condition: 301-350 mg/dl Dose/Route: 14 units/SQ Condition: 351-400 mg/dl Dose/Route: 16 units/SQ Condition: greater than 400 mg/dl Dose/Route: 18 units/SQ Rx Instructions: per sliding scale aripiprazole [Abilify] 10 MG tablet 15 mg PO HS Qty: 0 duloxetine [Cymbalta] 30 MG capsule,delayed release(DR/EC) 60 mg PO BID Qty: 0 buspirone 7.5 mg Tablet 7.5 mg PO BID lactulose 10 gram/15 mL Solution 30 ml PO TID metoprolol succinate 50 mg Capsule,Sprinkle,Er 24hr 50 mg PO QDAY latanoprost 0.005 % Drops 1 drp OPHTHALMIC (EYE) QPM Rx Instructions: 1 drop in both eyes atorvastatin 40 mg tablet 40 mg PO HS allopurinol 100 mg tablet 100 mg PO QDAY levalbuterol HCl 1.25 mg/3 mL Solution For Nebulization 1.25 mg INHALATION [id number] PRN (Reason: sob) Rx Instructions: for up to 3 doses tramadol 50 mg Tablet 50 mg PO Q6H PRN (Reason: PAIN') divalproex [Depakote ER] 500 mg Tablet Extended Release 24 Hr 500 mg PO BID insulin glargine 100 unit/mL Cartridge 50 unit SUBCUT HS insulin glargine 100 unit/mL Cartridge 35 unit SUBCUT QAM lorazepam 1 mg Tablet 1 mg PO BID pantoprazole 40 mg Tablet,Delayed Release (Dr/Ec) 40 mg PO QDAY GlucaGen HypoKit 1 mg Recon Soln 1 mg SUBCUT Q20M PRN (Reason: Hypoglycemia) Rx Instructions: administer if BS <54 until target blood sugar attained Discontinued lisinopril [Prinivil] 20 MG tablet 20 mg PO QDAY Qty: 0 Referrals: No Primary/Family,Physician [Primary Care Provider] Patient/Caregiver Discharge Instructions Education Materials: Kidney Failure Healthcare Team, Kidney Failure Self Care, Acute Kidney Failure Dc, Hyperkalemia Dc, Discharge Instructions for ... Print Language: Armenian Stand Alone Forms: Hetal Award Info., Patient Portal Info Letter Discharge Order Discharge Orders: Discharge (Routine); Ordered 02/23/25 Ordered By: Cuco Parra
[2025-02-23 14:53] LABS: Albumin, Serum 3.9 gm/dL (3.5-5.0); Anion Gap 11 (7-16); BUN/Creatinine Ratio 10 Ratio (12-20); Blood Urea Nitrogen 14 mg/dL (9-23); Calcium 8.3 mg/dL (8.3-10.6); Calcium (Corrected) 8.4 mg/dL (8.5-10.1); Carbon Dioxide 21.9 mMol/L (20.0-31.0); Chloride 106 mMol/L (98-107); Creatinine (Component) 1.4 mg/dL (0.6-1.3); Estimated Creatinine Clearance 39.4 mL/min (>60); Glucose 164 mg/dL (74-106); Osmolality,Calculated 282 (275-295); Phosphorous 4.3 mg/dL (2.4-5.1); Potassium 5.5 mMol/L (3.4-5.1); Sodium 139 mMol/L (136-145); eGFR 45 See Note
--- NOTE | 2025-02-23 15:13 | ESPR_ITS ---
<Statement entered by Ger Mcqueen MD - 02/23/25 18:15> Patient is seen and examined at bedside. Noted to have significant improvement in mentation from yesterday. Renal function panel showed improvement in creatinine from 1.6-1.4. Repeat renal panel was ordered in the afternoon and found to have potassium of 5.5 for which patient was given a dose of Kayexalate and will keep her in the hospital for tonight. Will repeat renal panel in the morning. If the renal panel is stable, plan to discharge tomorrow. I have personally seen and examined the patient, agree with residents assessment and plan Patient plan of care was discussed with the attending physician, Dr. Alpesh Mcqueen, PGY2 Documentation for date of: 02/23/25 Subjective Subjective Interval history: Patient seen at bedside this afternoon. Appears tired but stable. Speech is now comprehendable and patient back to baseline. No chest pain, no shortness of breath, no abdominal pain. She was informed about her potassium level increasing and that she will remain admitted for monitoring another day. She verbalized understanding. No new complaints. Exam Vital Signs Temp Pulse Resp BP Pulse Ox O2 Del Method 97.5 F 67 16 151/73 H 98 Room Air 02/23/25 11:57 02/23/25 11:57 02/23/25 11:57 02/23/25 11:57 02/23/25 11:57 02/23/25 11:57 Narrative Exam General: Morbidly obese, not in acute distress Head: Normocephalic, atraumatic HEENT: PERRLA, EOMs intact, moist mucous membranes, uvula midline, normal phonation Neck: Supple, nontender Respiratory: Clear to auscultation bilaterally, no wheezes, crackles, or rubs Cardiovascular: Regular rhythm, no murmurs or extra sounds Abdomen: Grossly distended (due to obesity), soft, nontender, no masses, positive bowel sounds Back: No CVA tenderness, no spine tenderness Extremities: Left-sided hemiplegia (residual from stroke), no cyanosis or edema Skin: Intact, no rashes or lesions Neurologic: A&O x3 Objective Labs 02/23/25 04:45 02/23/25 14:20 Labs: Laboratory Results - last 24 hr 02/22/25 02/23/25 02/23/25 15:08 04:45 04:45 WBC 2.5 L RBC 2.48 L Hgb 7.8 L Hct 24.6 L MCV 99 MCH 31.5 MCHC 31.7 RDW Std Deviation 55.4 H Plt Count 59 L Neut % (Auto) 48 Lymph % (Auto) 35 [place] % (Auto) 8 Eos % (Auto) 4 Baso % (Auto) 1 Neut # (Auto) 1.2 L Lymph # (Auto) 0.9 L [place] # (Auto) 0.2 Eos # (Auto) 0.1 Baso # (Auto) 0.0 Immature Gran # (Auto) 0.12 H Absolute Nucleated RBC 0.00 Immature Gran % 5 H Nucleated RBC % 0 Sodium 142 Potassium 4.6 D Chloride 106 Carbon Dioxide 26.3 Anion Gap 10 BUN 22 Creatinine 1.4 H Estim Creat Clear Calc 39.4 L eGFR 45 L BUN/Creatinine Ratio 16 Glucose 140 H D Calculated Osmolality 288 Calcium 8.6 Corrected Calcium 8.6 Phosphorus 3.7 Magnesium 1.6 Total Bilirubin 0.5 AST 44 H ALT 34 Alkaline Phosphatase 240 H Total Protein 6.5 Albumin 4.0 Globulin 2.5 Albumin/Globulin Ratio 1.6 TSH 12.15 H Free T4 1.25 Cancelled Ur Collection Type Cancelled Urine Color Cancelled Urine Clarity Cancelled Urine pH Cancelled Ur Specific [place] Cancelled Urine Protein Cancelled Urine Glucose (UA) Cancelled Urine Ketones Cancelled Urine Blood Cancelled Urine Nitrite Cancelled Urine Bilirubin Cancelled Urine Urobilinogen (Auto) Cancelled Ur Leukocyte Esterase Cancelled Urine RBC Cancelled Urine WBC Cancelled Ur Squamous Epith Cells Cancelled Ur Transition Epith Cell Cancelled Ur Renal Epithelial Cell Cancelled Calcium Carbonate Cryst Cancelled Calcium Phosphate Cryst Cancelled Calcium Oxalate Crystal Cancelled Leucine Crystals Cancelled Cystine Crystals Cancelled Uric Acid Crystals Cancelled Triple Phos Crystals Cancelled Tyrosine Crystals Cancelled Amorphous Crystals Cancelled Urine Bacteria Cancelled Cellular Casts Cancelled Epithelial Casts Cancelled Fatty Casts Cancelled Hyaline Casts Cancelled Granular Casts Cancelled Waxy Casts Cancelled Broad Casts Cancelled RBC Casts Cancelled Urine Mucus Cancelled Urine Trichomonas Cancelled Ur Yeast w [place]pha[place] Cancelled Urine Yeast (Budding) Cancelled Urine Sperm Cancelled Ur Oval Fat Bodies Cancelled Ur Culture Indicated? Cancelled Urine Opiates Screen Negative Urine Fentanyl Screen Negative Ur Barbiturates Screen Negative U Amphetamin/Meth Scrn Negative U Benzodiazepines Scrn Negative U Cocaine Metab Screen Negative U Marijuana (THC) Screen Negative Misc Test Result Platelets confirmed 02/23/25 02/23/25 09:52 14:20 WBC RBC Hgb Hct MCV MCH MCHC RDW Std Deviation Plt Count Neut % (Auto) Lymph % (Auto) [place] % (Auto) Eos % (Auto) Baso % (Auto) Neut # (Auto) Lymph # (Auto) [place] # (Auto) Eos # (Auto) Baso # (Auto) Immature Gran # (Auto) Absolute Nucleated RBC Immature Gran % Nucleated RBC % Sodium 139 Potassium 5.5 H D Chloride 106 Carbon Dioxide 21.9 Anion Gap 11 BUN 14 Creatinine 1.4 H Estim Creat Clear Calc 39.4 L eGFR 45 L BUN/Creatinine Ratio 10 L Glucose 164 H Calculated Osmolality 282 Calcium 8.3 Corrected Calcium 8.4 L Phosphorus 4.3 Magnesium Total Bilirubin AST ALT Alkaline Phosphatase Total Protein Albumin 3.9 Globulin Albumin/Globulin Ratio TSH Free T4 Ur Collection Type Clean Catch Urine Color Lt-Yellow Urine Clarity Clear Urine pH 6.5 Ur Specific [place] 1.011 Urine Protein Negative Urine Glucose (UA) Negative Urine Ketones Negative Urine Blood Negative Urine Nitrite Negative Urine Bilirubin Negative Urine Urobilinogen (Auto) Negative Ur Leukocyte Esterase Negative Urine RBC 1 Urine WBC < 1 Ur Squamous Epith Cells 0 Ur Transition Epith Cell Ur Renal Epithelial Cell Calcium Carbonate Cryst Calcium Phosphate Cryst Calcium Oxalate Crystal Leucine Crystals Cystine Crystals Uric Acid Crystals Triple Phos Crystals Tyrosine Crystals Amorphous Crystals Urine Bacteria None Cellular Casts Epithelial Casts Fatty Casts Hyaline Casts Granular Casts Waxy Casts Broad Casts RBC Casts Urine Mucus Urine Trichomonas Ur Yeast w [place]pha[place] Urine Yeast (Budding) Urine Sperm Ur Oval Fat Bodies Ur Culture Indicated? Not Indicated Urine Opiates Screen Urine Fentanyl Screen Ur Barbiturates Screen U Amphetamin/Meth Scrn U Benzodiazepines Scrn U Cocaine Metab Screen U Marijuana (THC) Screen Misc Test Result Quality Measures Quality Measures VTE prophylaxis Assessment & Plan Assessment Current Active Medications: Generic Name Dose Route Start Last Admin Trade Name Freq PRN Reason Stop Dose Admin Acetaminophen 650 mg 02/22/25 15:21 02/22/25 22:13 Acetaminophen 325 Mg Tablet PO 03/24/25 15:20 650 mg Q6H PRN Administration Fever >100.4 or pain 1-3 Aripiprazole 15 mg 02/23/25 21:00 Aripiprazole 5 Mg Tablet PO 03/25/25 20:59 HS FILI Aspirin 81 mg 02/23/25 09:00 02/23/25 09:21 Aspirin Ec 81 Mg Tabec PO 03/25/25 08:59 81 mg QDAY FILI Administration Atorvastatin Calcium 40 mg 02/22/25 21:00 02/22/25 22:13 Atorvastatin Calcium 20 Mg Tablet PO 03/24/25 20:59 40 mg HS FILI Administration Buspirone HCl 7.5 mg 02/23/25 09:00 02/23/25 09:20 Buspirone Hcl 5 Mg Tablet PO 03/25/25 08:59 7.5 mg BID FILI Administration Dextrose 25 ml 02/22/25 16:12 Dextrose 50%-Water Inj 50 Ml Syringe IV 03/24/25 16:11 Q15MIN PRN BG 50-70 responsive npo pt Dextrose 50 ml 02/22/25 16:12 Dextrose 50%-Water Inj 50 Ml Syringe IV 03/24/25 16:11 Q15MIN PRN BG <50 OR BG <70 & pt unresponsive Divalproex Sodium 500 mg 02/22/25 21:00 02/23/25 09:[address] 500 Mg Tablet.Dr PO 03/24/25 20:59 500 mg BID FILI Administration Duloxetine HCl 60 mg 02/23/25 09:00 02/23/25 09:20 Duloxetine Hcl 30 Mg Capsule PO 03/25/25 08:59 60 mg BID FILI Administration Gabapentin 300 mg 02/22/25 22:00 02/23/25 14:16 Gabapentin 300 Mg Capsule PO 03/24/25 21:59 300 mg TID FILI Administration Glucagon 1 mg 02/22/25 16:12 Glucagon Inj 1 Mg Vial IM Q15MIN PRN BG <70, and no IV access Sodium Chloride 1,000 mls @ 100 mls/hr 02/23/25 11:08 02/23/25 11:26 Ns IV 03/25/25 11:07 100 mls/hr .Q10H FILI Administration Insulin Degludec 35 unit 02/22/25 21:00 02/22/25 22:19 Insulin Degludec 5 Unit/0.05 Ml (Per 5 Units) SC 03/24/25 20:59 35 unit HS FILI Administration Insulin Human Lispro 0 unit 02/22/25 17:00 02/23/25 11:26 Insulin Lispro (Admelog) 1 Unit/0.01 Ml Unit SC 03/24/25 16:59 Not Given AC FILI Protocol Metoprolol Succinate 50 mg 02/22/25 17:00 02/23/25 09:21 Metoprolol Succinate Xl 25 Mg Tabcr PO 03/24/25 16:59 50 mg QDAY FILI Administration Ondansetron HCl 4 mg 02/22/25 15:21 Ondansetron Inj 2 Mg/Ml Inj 2 Ml IVP 03/24/25 15:20 Q6H PRN NAUSEA OR VOMITING Protocol Pantoprazole Sodium 40 mg 02/23/25 09:00 02/23/25 09:20 Pantoprazole 40 Mg Tablet PO 03/25/25 08:59 40 mg QDAY FILI Administration Plan 54F with history of CVA with left hemiplegia, cirrhosis from LUCIO, chronic pancytopenia, DM2, HTN, HLD, seizure disorder, and schizophrenia, admitted for weakness and fatigue now with HARJIT improving but afternoon hyperkalemia to 5.5 treated with Kayexalate and being kept another day for monitoring. # Acute Kidney Injury (HARJIT) Likely prerenal from poor PO intake and dehydration. Cr 1.4 this morning and again on repeat renal panel. GFR 45. Patient had adequate UO of 400 cc with a purewick, retained 200cc on bladder scan. UA negative. Plan: * Continue NS 100 mL/hr * Daily BMP * Avoid nephrotoxic meds (hold lisinopril, hold NSAIDs) * Monitor urine output (I/O) # Hypomagnesemia (Mg 1.6), # Hyperkalemia (K 5.5) Mg 1.6 today. K 4.6 in am -> 5.5 on repeat -> treated with Kayexalate; keeping patient for monitoring. Plan: * Recheck Mg and K in AM * Replaced Mg with 4g IV * Given 30 g Kayexalate * Continuous telemetry * Avoid K-sparing meds # Pancytopenia (chronic)Likely secondary to liver disease WBC 2.5, Hgb 7.8, platelets 59 (baseline low). Likely from cirrhosis + hepatosplenomegaly. Plan: * Daily CBC * Transfuse if Hgb <7 or platelets <10k (or <50k if bleeding) * Oncology follow-up (Dr. Guzman) # Generalized Weakness, Dizziness, Fatigue Likely multifactorial: anemia, HARJIT, electrolyte imbalance, hyperglycemia, cirrhosis-related fatigue. Speech incomprehensible likely due to metabolic derangements + baseline neuro deficits. Unknown baseline. Plan: * Correct electrolytes * Hydration * Glucose control * Neuro checks q4h # Hyperglycemia, DM2 Glucose 321 on arrival. On Lantus 75U at baseline and sliding scale at SNF. Glucose 154 in the afternoon today. Plan: * Start degludec 35 units nightly * Start sliding scale insulin TID AC + HS * Hold metformin (HARJIT) * Carb-controlled diet # Cirrhosis (LUCIO) Mildly elevated AST (44), ALT (34), Alk Phos (57), albumin normal. Plan: * Trend LFTs * Avoid hepatotoxic meds * Continue pantoprazole # Anemia (chronic) Hgb 7.8; baseline low from chronic disease + iron deficiency. Plan: * Will hold ferrous sulfate for now * Trend Hgb daily * Transfuse if <7 or symptomatic # Seizure Disorder On Depakote and gabapentin at baseline. Poor speech today but no seizure activity. Plan: * Resume Depakote and gabapentin * Seizure precautions * Consider valproate level if mental status worsens # Hypertension # Hyperlipidemia Plan: * Resume metoprolol succinate * HOLD lisinopril due to HARJIT * Resume atorvastatin # Schizophrenia / Anxiety Baseline on Abilify, lorazepam, buspirone, Cymbalta. Plan: * Resume Abilify, buspirone, Cymbalta * Resume lorazepam at home dose once med rec's are back # GERD Plan: * Continue pantoprazole 40 mg BID Health Maintenance Disposition: Continue inpatient; hyperkalemia requires monitoring Diet: Carb-controlled diet Feeding: PO diet as tolerated Thromboprophylaxis: SCDs only (platelets 59) GI Prophylaxis: Pantoprazole 40 mg Neuro Checks: q4h Code Status: Full Code ----- Plan discussed with attending physician Dr. Betts and senior resident Dr. Charisse Parra MD PGY-1 Internal Medicine Attending Provider Attestation/Addendum I have discussed and was present for the essential components of the history, physical examination, diagnosis, and treatment plan with the resident. I agree with the patient's care as documented by the resident and amended herein by me. Richard Betts DO. Although this document has been carefully reviewed, there may still be some phonetic and other typographical errors. These errors are purely grammatical due to imperfections in the software program and should not be construed in any way to compromise the substance of the patient's medical care during this visit. Patient originally scheduled for discharge today however potassium elevated to 5.5 continue fluids, recheck, hopeful discharge tomorrow on 02/24
[2025-02-23] MEDS: SOD POLYSTYRENE SULFON SUSP 15 GM/60 ML BTL 30 GM PO (15:16)
[2025-02-23] MEDS: ATORVASTATIN CALCIUM 20 MG TABLET 40 MG PO (21:12)
[2025-02-23] MEDS: ACETAMINOPHEN 325 MG TABLET 650 MG PO (21:18)
[2025-02-23] MEDS: INSULIN DEGLUDEC 5 UNIT/0.05 ML (PER 5 UNITS) 35 UNIT SC (21:26)
[2025-02-24] VITALS (9 sets, daily range): BP systolic 143–182; BP diastolic 65–90; PULSE 64–79; RESP 18–20; TEMP 36.1–36.8; O2SAT 96–98
[2025-02-24] MEDS: MELATONIN 3 MG TABLET 6 MG PO (03:09)
[2025-02-24 05:49] LABS: Basophils # (Auto) 0.0 Thou/mm3 (0.0-0.2); Basophils % (Auto) 1 % (0-2.5); Eosinophils # (Auto) 0.1 Thou/mm3 (0.0-0.5); Eosinophils % (Auto) 4 % (0-10); Hematocrit 24.3 % (36.0-46.0); Immature Granulocytes Auto 0.09 Thou/mm3 (0.00-0.00); Lymphocytes # (Auto) 1.0 Thou/mm3 (1.0-4.8); Lymphocytes % (Auto) 33 % (10-50); Mean Corpuscular HGB Conc 32.9 g/dl (31.0-37.0); Mean Corpuscular Hemoglobin 32.1 pg (25.0-35.0); Mean Corpuscular Volume 98 fL (80-100); Monocytes # (Auto) 0.3 Thou/mm3 (0.0-0.8); Monocytes % (Auto) 11 % (0-12); Neutrophils # (Auto) 1.4 Thou/mm3 (1.8-7.7); Neutrophils % (Auto) 47 % (37-80); Nucleated Red Blood Cell # 0.00 Thou/mm3 (0.00-0.00); Nucleated Red Blood Cell % 0 /100 WBC (0); RDW Standard Deviation 53.9 fL (36.4-46.3); Red Blood Count 2.49 Miln/mm3 (4.00-5.20); White Blood Count 2.9 Thou/mm3 (3.6-11.0)
[2025-02-24 06:21] LABS: Alanine Aminotransferase 39 U/L (10-49); Albumin, Serum 4.0 gm/dL (3.5-5.0); Albumin/Globulin Ratio 1.6 (1.2-2.2); Alkaline Phosphatase 274 U/L (46-116); Anion Gap 12 (7-16); Aspartate Amino Transferase 56 U/L (0-34); BUN/Creatinine Ratio 15 Ratio (12-20); Bilirubin,Total 0.6 mg/dL (0.3-1.2); Blood Urea Nitrogen 18 mg/dL (9-23); Calcium 8.2 mg/dL (8.3-10.6); Calcium (Corrected) 8.2 mg/dL (8.5-10.1); Carbon Dioxide 26.5 mMol/L (20.0-31.0); Chloride 106 mMol/L (98-107); Creatinine (Component) 1.2 mg/dL (0.6-1.3); Estimated Creatinine Clearance 46.0 mL/min (>60); Globulin 2.5 gm/dL (2.3-3.5); Glucose 106 mg/dL (74-106); Magnesium 1.7 mg/dL (1.6-2.6); Osmolality,Calculated 288 (275-295); Phosphorous 3.7 mg/dL (2.4-5.1); Potassium 4.0 mMol/L (3.4-5.1); Sodium 144 mMol/L (136-145); Total Protein 6.5 gm/dL (5.7-8.2); eGFR 54 See Note
[2025-02-24 06:28] LABS: Hemoglobin 8.0 g/dL (12.0-16.0); Platelet Count 55 Thou/mm3 (140-440)
[2025-02-24 07:58] LABS: Slide Review Platelets confirmed
[2025-02-24] MEDS: ASPIRIN EC 81 MG TABEC PO (09:28)
[2025-02-24] MEDS: METOPROLOL SUCCINATE XL 25 MG TABCR 50 MG PO (09:29)
[2025-02-24] MEDS: DIVALPROEX SOD DR 500 MG TABLET.DR PO (09:30)
[2025-02-24] MEDS: DULoxetine HCL 30 MG CAPSULE 60 MG PO (09:31)
[2025-02-24] MEDS: PANTOPRAZOLE 40 MG TABLET PO (09:31)
--- NOTE | 2025-02-24 11:43 | ESDS_ITS ---
Planned Discharge Date 02/24/25 DS: Providers Provider Date of admission: 02/23/25 13:28 Primary care physician: Physician No Primary/Family Admitting Provider: Peewee Betts DO Attending Provider on Admission: Peewee Betts DO Attending Provider on DC: Peewee Betts DO Discharging Provider: Cuco Parra MD DS: Diagnosis Problem List Completed Was Problem List Reviewed/Reconciled?: Yes Hospital Course Hospital Course Hospital course: Ms. Venecia Bhatia is a 54-year-old female with a history of CVA with left hemiplegia, cirrhosis from LUCIO, chronic pancytopenia, DM2, HTN, HLD, schizophrenia, and seizure disorder who presented with weakness, dizziness, fatigue, and incomprehensible speech. Initial labs showed HARJIT (Cr 1.6), hyperkalemia (K 5.4 -> 4.0), hypomagnesemia (Mg 1.2 -> 1.7), hyperglycemia, and her chronic pancytopenia. She was started on IV fluids and electrolyte repletion. On 02/23, a repeat renal panel showed K increased to 5.5, and she was treated with 30 g Kayexalate, with normalization of potassium to 4.0 by the following morning. Renal function improved to baseline with Cr 1.2. LFTs were mildly elevated but stable. She remained hemodynamically stable, tolerating PO, and had return of bowel function. She was incontinent during admission so PureWick was used; UA was negative. By 02/24, the patient was feeling well, requested a shower prior to discharge, and was deemed medically stable to return to her facility. She will continue all home medications. Discharge Diagnoses: #Acute kidney injury, resolved #Hyperkalemia, resolved #Hypomagnesemia, corrected #Chronic pancytopenia #Cirrhosis (LUCIO) #Type 2 diabetes mellitus #Hypertension #Hyperlipidemia #Seizure disorder #Schizophrenia #History of CVA with left hemiplegia Discharge Instructions: -Continue all home medications as prescribed. -Continue insulin degludec 35 units nightly. -Continue lisinopril 20 mg and start taking taking Amlodipine 5mg once daily -Follow up with primary care in 1 week. -Follow up with oncology (Dr. Guzman) as scheduled. -Follow up with GI outpatient for cirrhosis from LUCIO. -Drink plenty of fluids and stay well hydrated. -Monitor blood sugars closely and take insulin as directed. -Headache may be treated with Tylenol as needed. -Return to ER for fever, worsening weakness, confusion, chest pain, shortness of breath, or inability to tolerate PO intake. ----- Plan discussed with attending physician Dr. Alpesh Parra MD PGY-1 Internal Medicine Time Spent with Patient Time attestation: Total time spent providing and/or coordinating discharge services: Time spent: Greater than 30 minutes Exam Vital Signs Temp Pulse Resp BP Pulse Ox O2 Del Method 98.2 F 74 20 182/75 H 96 Room Air 02/24/25 11:39 02/24/25 11:39 02/24/25 11:39 02/24/25 11:39 02/24/25 11:39 02/24/25 11:39 Discharge Plan Plan Patient Disposition: Xfer [facility]illed [facility] Fac (SNF) Care Plan Goals: Discharge Instructions: -Continue all home medications as prescribed. -Continue insulin degludec 35 units nightly. -Continue lisinopril 20 mg and start taking taking Amlodipine 5mg once daily -Follow up with primary care in 1 week. -Follow up with oncology (Dr. Guzman) as scheduled. -Follow up with GI outpatient for cirrhosis from LUCIO. -Drink plenty of fluids and stay well hydrated. -Monitor blood sugars closely and take insulin as directed. -Headache may be treated with Tylenol as needed. -Return to ER for fever, worsening weakness, confusion, chest pain, shortness of breath, or inability to tolerate PO intake. Prescriptions/Referrals Prescriptions/Med Rec: New insulin degludec 100 unit/mL Solution 35 unit SCi HS 30 Days Qty: 10.5 0RF lisinopril 20 mg Tablet 20 mg PO QDAY 60 Days Qty: 60 0RF amlodipine 5 mg tablet 5 mg PO QDAY Qty: 30 2RF Continued metformin [Glucophage] 500 MG tablet 1,000 mg PO BIDAC Qty: 0 gabapentin 300 MG capsule 300 mg PO TID PRN (Reason: PAIN) Qty: 0 insulin lispro [Humalog U-100 Insulin] 100 U/ML solution See Protocol Sub-Q AC PRN (Reason: DIABETES) Qty: 0 Protocol: Insulin Corrective High-Dose Regimen Condition: Fingerstick Blood Glucose Dose/Route: Insulin Units Condition: 141-180 mg/dl Dose/Route: 6 units/SQ Condition: 181-220 mg/dl Dose/Route: 8 units/SQ Condition: 221-260 mg/dl Dose/Route: 10 units/SQ Condition: 261-300 mg/dl Dose/Route: 12 units/SQ Condition: 301-350 mg/dl Dose/Route: 14 units/SQ Condition: 351-400 mg/dl Dose/Route: 16 units/SQ Condition: greater than 400 mg/dl Dose/Route: 18 units/SQ Rx Instructions: per sliding scale aripiprazole [Abilify] 10 MG tablet 15 mg PO HS Qty: 0 duloxetine [Cymbalta] 30 MG capsule,delayed release(DR/EC) 60 mg PO BID Qty: 0 buspirone 7.5 mg Tablet 7.5 mg PO BID lactulose 10 gram/15 mL Solution 30 ml PO TID metoprolol succinate 50 mg Capsule,Sprinkle,Er 24hr 50 mg PO QDAY latanoprost 0.005 % Drops 1 drp OPHTHALMIC (EYE) QPM Rx Instructions: 1 drop in both eyes atorvastatin 40 mg tablet 40 mg PO HS allopurinol 100 mg tablet 100 mg PO QDAY levalbuterol HCl 1.25 mg/3 mL Solution For Nebulization 1.25 mg INHALATION [id number] PRN (Reason: sob) Rx Instructions: for up to 3 doses tramadol 50 mg Tablet 50 mg PO Q6H PRN (Reason: PAIN') divalproex [Depakote ER] 500 mg Tablet Extended Release 24 Hr 500 mg PO BID insulin glargine 100 unit/mL Cartridge 50 unit SUBCUT HS insulin glargine 100 unit/mL Cartridge 35 unit SUBCUT QAM lorazepam 1 mg Tablet 1 mg PO BID pantoprazole 40 mg Tablet,Delayed Release (Dr/Ec) 40 mg PO QDAY GlucaGen HypoKit 1 mg Recon Soln 1 mg SUBCUT Q20M PRN (Reason: Hypoglycemia) Rx Instructions: administer if BS <54 until target blood sugar attained Discontinued lisinopril [Prinivil] 20 MG tablet 20 mg PO QDAY Qty: 0 Referrals: No Primary/Family,Physician [Primary Care Provider] Patient/Caregiver Discharge Instructions Meds to Beds: No Education Materials: Kidney Failure Healthcare Team, Kidney Failure Self Care, Acute Kidney Failure Dc, Hyperkalemia Dc, Discharge Instructions for ... Print Language: Faroese Stand Alone Forms: Hetal Award Info., Patient Portal Info Letter Discharge Order Discharge Orders: Discharge (Routine); Ordered 02/24/25 Ordered By: Cuco Parra Quality Discharge Quality Measures VTE prophylaxis Attestestation MD Attestation I have discussed and was present for the essential components of the discharge history, physical examination, diagnosis, and discharge treatment plan with the resident. I agree with the patient's discharge care as documented by the resident and amended herein by me. Richard Betts DO. The patient understood all discharge instructions, all questions were answered satisfactorily. The patient was instructed to return to the Emergency Department is symptoms worsened or persisted. Patient was stable, afebrile and tolerating p.o. intake at time of discharge back to [facility] Although this document has been carefully reviewed, there may still be some phonetic and other typographical errors. These errors are purely grammatical due to imperfections in the software program and should not be construed in any way to compromise the substance of the patient's medical care during this visit.
--- NOTE | 2025-02-24 12:23 | PC.SS ---
Updated clinicals submitted to [facility] via [facility].
--- NOTE | 2025-02-24 12:24 | PC.SS ---
Ambulance transport scheduled for 02:00 pm. Bedside nurse, SNF and patient updated.
[2025-02-24] MEDS: NIFEdipine XL 30 MG TABCR 60 MG PO (12:54)
[2025-02-24] MEDS: GABAPENTIN 300 MG CAPSULE PO (13:08)
== END 2025-02-24 14:08 | disposition skilled nursing facility (03) | DRG 469 ==
LOC: SERX 14:09 → SERHOLD 02-23 08:12 → S3SX 02-23 08:13
PROVIDERS: Registered Nurse General Practice; Admitting Provider Student in an Organized Health Care Education/Training Program; Emergency Provider Emergency Medicine; Visit Provider Student in an Organized Health Care Education/Training Program
DX: N17.9 Acute kidney failure, unspecified (principal); K74.60 Unspecified cirrhosis of liver; I69.354 Hemiplegia and hemiparesis following cerebral infarction affecting left non-dominant side; D61.818 Other pancytopenia; E87.5 Hyperkalemia; E83.42 Hypomagnesemia; E11.65 Type 2 diabetes mellitus with hyperglycemia; D50.9 Iron deficiency anemia, unspecified; D63.8 Anemia in other chronic diseases classified elsewhere; G40.909 Epilepsy, unspecified, not intractable, without status epilepticus; I10 Essential (primary) hypertension; E78.5 Hyperlipidemia, unspecified; F20.9 Schizophrenia, unspecified; F41.9 Anxiety disorder, unspecified; K21.9 Gastro-esophageal reflux disease without esophagitis; E66.01 Morbid (severe) obesity due to excess calories; E86.0 Dehydration; Z79.4 Long term (current) use of insulin; Z79.84 Long term (current) use of oral hypoglycemic drugs; Z79.85 Long-term (current) use of injectable non-insulin antidiabetic drugs; Z79.899 Other long term (current) drug therapy; Z88.5 Allergy status to narcotic agent; Z88.0 Allergy status to penicillin; Z88.6 Allergy status to analgesic agent
CPT/HCPCS: 36415; 71045; 80053; 80069; 80307; 81001; 83615; 83735; 83880; 84100; 84439; 84443; 84484; 85025; 85610; 85730; 87081; 93005; 96360; 96361; 99283; G0378; J0612; J1815; J3475; J7030; A9270

== ENCOUNTER 2025-03-28 07:12 | Emergency (ER) | payer MEDICAID, SELFPAY ==
[2025-03-28 07:30] VITALS: BP 131/71; PULSE 75; RESP 18; TEMP 36.7; O2SAT 94
[2025-03-28 07:38] VITALS: PULSE 74; RESP 20; O2SAT 96; BMI 34.1
[2025-03-28 08:00] VITALS: BP 140/77; PULSE 75; RESP 12; TEMP 36.6; O2SAT 98
--- NOTE | 2025-03-28 08:01 | XR_ITS ---
Examination: CT cervical spine without contrast 2-D sagittal reconstructions 2-D coronal reconstructions 3-D reconstructions. Exam date and time: March 28, 2025, 0819 hours INDICATIONS: Ground-level fall today with injury to the neck, neck pain CTDI:vol (mGy) 16.8 DLP: (mGycm) 362 Technique: Multiple 2 mm axial sections of the cervical spine have been obtained. The coronal and sagittal reconstructions have been obtained. 3-D reconstructions have been obtained. Low dose protocols were performed. One or more of the following dose reduction techniques were used; automated exposure control, adjustment of the mA and/or KV according to patient size, use of iterative reconstruction technique. Findings: Axial sections demonstrate intact base of the skull. C1 exhibit satisfactory relationship to the odontoid. No acute cervical vertebral body fracture seen. Alignment posterior spinous processes satisfactory. Impression: No acute cervical fracture.
--- NOTE | 2025-03-28 08:01 | XR_ITS ---
Examination: CT brain head without contrast. 2-D sagittal coronal reconstructions Date and time of exam: March 28, 2025, 0819 hours COMPARISON: March 19, 2023 INDICATIONS: Ground-level fall today CTDI: vol (mGy): 51.8 DLP: (mGycm): 1045 Technique: Multiple CT axial sections of the brain have been obtained, 5 mm slice thickness. Contrast has not been administered. 2-D sagittal, coronal reconstructions have been obtained Low dose protocols were performed. One or more of the following dose reduction techniques were used; automated exposure control, adjustment of the mA and/or KV according to patient size, use of iterative reconstruction technique. Findings: Acute subdural hemorrhage along the cerebral falx, anteriorly measuring up to 8 mm and posteriorly measuring up to 5 mm, axial images 11 and 12 Large old infarct right middle cerebral artery distribution Also small areas of subarachnoid hemorrhage posterior parietal sulci axial image 17, on the right side No intra-axial hematoma No mass effect upon the ventricular system The cranial vault is intact Posterior scalp hematoma IMPRESSION: Acute subdural hemorrhage along the cerebral falx as above Small areas of subarachnoid hemorrhage right posterior parietal sulci Recommend close clinical observation and short-term follow-up CT brain scans as clinically warranted :
--- NOTE | 2025-03-28 08:15 | PC.NURSE ---
Pt taken to CT.
--- NOTE | 2025-03-28 08:33 | PD.EDFALL ---
ED Fall Injury RME/HPI General Chief Complaint: Fall Stated Complaint: FALL Time Seen by Provider: 03/28/25 07:38 Arrival date/time: 03/28/25 07:12 RME / HPI RME / HPI Narrative: 54-year-old female coming in for evaluation of head injury after fall. States that she had gotten up to take something out of a drawer but pulled too hard, drawer came no, and she ended up falling backwards hitting her head on the floor. Denies any loss of consciousness, but notes it does she does feel a bit dizzy after the fall with mild blurry vision. Denies any nausea, vomiting, diarrhea, other acute symptoms at this time. Past medical history significant for diabetes, hypertension, hyperlipidemia. Related Data Home Medications ?Medication ?Instructions ?Recorded ?Confirmed aripiprazole 10 mg tablet (Abilify) 15 mg PO HS Bipolar Disorder #0 03/29/14 02/23/25 tabs gabapentin 300 mg capsule 300 mg PO TID PRN PAIN #0 caps 03/29/14 02/23/25 insulin lispro 100 unit/mL See Protocol subcut AC PRN 03/29/14 02/23/25 subcutaneous solution (Humalog DIABETES #0 vials U-100 Insulin) metformin 500 mg tablet 1,000 mg PO BIDAC Diabetes #0 tabs 03/29/14 02/23/25 (Glucophage) duloxetine 30 mg capsule,delayed 60 mg PO BID #0 caps 07/13/14 02/23/25 release (Cymbalta) buspirone 7.5 mg tablet 7.5 mg PO BID 12/26/20 02/23/25 lactulose 10 gram/15 mL oral 30 ml PO TID 12/26/20 02/23/25 solution metoprolol succinate 50 mg capsule 50 mg PO QDAY 12/26/20 02/23/25 sprinkle, ext. release 24 hr allopurinol 100 mg tablet 100 mg PO QDAY 05/28/23 02/23/25 atorvastatin 40 mg tablet 40 mg PO HS 05/28/23 02/23/25 latanoprost 0.005 % eye drops 1 drp ophthalmic (eye) QPM 05/28/23 02/23/25 levalbuterol HCl 1.25 mg/3 mL 1.25 mg inhalation [id number] PRN sob 05/28/23 02/23/25 solution for nebulization divalproex 500 mg tablet,extended 500 mg PO BID 12/03/23 02/23/25 release 24 hr (Depakote ER) glucagon 1 mg solution for 1 mg subcut Q20M PRN Hypoglycemia 12/03/23 02/23/25 injection (GlucaGen HypoKit) insulin glargine 100 unit/mL 35 unit subcut QAM 12/03/23 02/23/25 subcutaneous cartridge insulin glargine 100 unit/mL 50 unit subcut HS 12/03/23 02/23/25 subcutaneous cartridge lorazepam 1 mg tablet 1 mg PO BID 12/03/23 02/23/25 pantoprazole 40 mg tablet,delayed 40 mg PO QDAY 12/03/23 02/23/25 release tramadol 50 mg tablet 50 mg PO Q6H PRN PAIN' 12/03/23 02/23/25 Previous Rx's ?Medication ?Instructions ?Recorded amlodipine 5 mg tablet 5 mg PO QDAY #30 tabs 02/24/25 lisinopril 20 mg tablet 20 mg PO QDAY 2 months #60 tabs 02/24/25 Allergies Allergy/AdvReac Type Severity Reaction Status Date / Time acetaminophen Allergy Mild Nausea Verified 02/22/25 11:28 hydrocodone Allergy Mild Nausea Verified 02/22/25 11:28 Penicillins Allergy Unknown Nausea Verified 02/22/25 11:28 Review of Systems Review of Systems Systems Reviewed: All systems reviewed, normal except as documented Past Medical History Past Medical History NEUROLOGIC: Positive Cerebrovascular Accident (2013, AFFECTING LEFT NON-DOMINANT SIDE) and Seizures (2023) CARDIAC: Positive Cardiac Disorders, Hypercholesterolemia and Hypertension GASTROINTESTINAL: Positive Gastrointestinal Disorders (ABD HERNIA) and Diverticulitis REPRODUCTIVE: Positive Previous Pregnancies MUSCULOSKELETAL: Positive Musculoskeletal Disorders ENDOCRINE: Positive Endocrine Disorders and Diabetes Mellitus Type 2 PSYCHO/SOCIAL: Positive Bipolar Disorder, Depression and Anxiety OTHER HISTORY: Positive Falls, Blood Transfusions, Anesthesia Reactions and Chicken Pox Family History FAMILY HISTORY: Negative Family Anesthesia Reaction Surgical History SURGICAL: Positive Section; Negative Cardiac Surgery, Endocrine Surgery, Abdominal Surgery or Joint Replacement Social History SMOKING STATUS: Never smoker Past Medical History Comments PMH COMMENT: Diabetes, hypertension, hyperlipidemia ED Exam Narrative Physical exam: Constitutional: Awake, sleepy, no acute distress HEENT: Normocephalic, atraumatic, extraocular movements intact. Neck: Supple, mild pain in general to posterior neck and bl trapezius region. CV: Regular rate and rhythm, no murmurs/rubs/gallops Lungs: Clear to auscultation BL, no respiratory distress. Abd: Soft, ND, mild tender to palpation upper abdomen, no rebound or guarding noted. Extremities: No deformities, no edema noted. Contusion noted to occipital region Neuro: Awake, sleepy, GCS 14 E3 V5 M6, left sided deficits from previous cva. Skin: Warm, dry, intact except contusion noted to occipital region. Course Course Course Narrative: 0834h: CT brain images reviewed - appears to have falcine subdural hematoma. dye and chemical coordinator for NS transfer requested. 0904h: Spoke w [facility] regarding pt for transfer. They will review case. Patient has been accepted for transfer Dr. Ramires at [facility]. Quality Measures none Orders Category Date Time Status Insert IV NOW Care 03/28/25 08:49 Active Referral - Anchorman Stat Cons 03/28/25 08:[address] cervical spine wo con Stat Exams 03/28/25 08:[address] head/brain wo con Stat Exams 03/28/25 08:01 Completed CBC Stat Lab 03/28/25 09:00 Results CMP [Comprehensive Metabolic Panel] Stat Lab 03/28/25 09:00 Completed PT [Prothrombin Time with INR] Stat Lab 03/28/25 09:00 Received PTT [Partial Thromboplastin Time] Stat Lab 03/28/25 09:00 Received Vital Signs Vital signs: Vital Signs Temperature 98.0 F 03/28/25 07:30 Pulse Rate 75 03/28/25 07:30 Respiratory Rate 18 03/28/25 07:30 Blood Pressure 131/71 H 03/28/25 07:30 Pulse Oximetry (%) 94 L 03/28/25 07:30 Oxygen Delivery Method Room Air 03/28/25 07:30 Fall MDM Narrative MDM Narrative:: 54-year-old female coming in for evaluation of head injury after fall this morning. Patient did strike her head and is having mild dizziness and blurred vision after fall. CT brain and C-spine were obtained for further evaluation. CT brain reveals a falcine subdural hematoma. Case was discussed with [facility] for transfer. Was accepted. Transfer set up. Remains vitally stable for transfer. Patient data External records reviewed:: Alf records Clinical information provided by:: patient Social determinants that could affect healthcare access:: none Patient has the following chronic illnesses:: History of CVA with left-sided deficits How is presenting disease/condition affected by chronic disease/condition?: exacerbated by Evaluation data The following diagnostics were reviewed and interpreted by me:: radiology exam(s) Lab and/or radiology exams considered but not ordered:: None Interpretation Summary: As above Medications / Prescriptions Medications or Prescriptions considered but not ordered:: None Medication administrations:: . Consultations Consultation(s) initiated? (list below): Yes Consultation #1 (Physician, Specialty, Details): As noted above Diagnosis Fall Differential Diagnosis: syncope, concussion with loss of consciousness, concussion without loss of consciousness and other Most likely diagnosis given after review of the tests above:: Falcine subdural hematoma Admission Indicated Admission indicated?: indicated (Transfer is indicated for neurosurgery) Admission Request Was there a request for admission?: No Disposition Plan Disposition Plan: Transfer Critical Care Time Critical Care Time Critical Care Time: Yes Total Critical Care Time (min.): 42 Attestation: The high probability of a clinically significant, sudden or life threatening deterioration required my full and direct attention, intervention and personal management. The aggregate critical care time was [42] minutes. This time is in addition to time spent performing reported procedures but includes the following: [x] Data Review and interpretation [x] Patient assessment and monitoring of vital signs [x] Documentation [x] Medication orders and management Discharge Plan Plan Patient Disposition: [facility] Facility Pt Being Transferred to: [facility] Service Needed for Transfer: Neurosurgery Patient condition on transfer: Stable Prescriptions/Referrals Prescriptions/Med Rec: No Action metformin [Glucophage] 500 MG tablet 1,000 mg PO BIDAC Qty: 0 gabapentin 300 MG capsule 300 mg PO TID PRN (Reason: PAIN) Qty: 0 insulin lispro [Humalog U-100 Insulin] 100 U/ML solution See Protocol Sub-Q AC PRN (Reason: DIABETES) Qty: 0 Protocol: Insulin Corrective High-Dose Regimen Condition: Fingerstick Blood Glucose Dose/Route: Insulin Units Condition: 141-180 mg/dl Dose/Route: 6 units/SQ Condition: 181-220 mg/dl Dose/Route: 8 units/SQ Condition: 221-260 mg/dl Dose/Route: 10 units/SQ Condition: 261-300 mg/dl Dose/Route: 12 units/SQ Condition: 301-350 mg/dl Dose/Route: 14 units/SQ Condition: 351-400 mg/dl Dose/Route: 16 units/SQ Condition: greater than 400 mg/dl Dose/Route: 18 units/SQ Rx Instructions: per sliding scale aripiprazole [Abilify] 10 MG tablet 15 mg PO HS Qty: 0 duloxetine [Cymbalta] 30 MG capsule,delayed release(DR/EC) 60 mg PO BID Qty: 0 buspirone 7.5 mg Tablet 7.5 mg PO BID lactulose 10 gram/15 mL Solution 30 ml PO TID metoprolol succinate 50 mg Capsule,Sprinkle,Er 24hr 50 mg PO QDAY latanoprost 0.005 % Drops 1 drp OPHTHALMIC (EYE) QPM Rx Instructions: 1 drop in both eyes atorvastatin 40 mg tablet 40 mg PO HS allopurinol 100 mg tablet 100 mg PO QDAY levalbuterol HCl 1.25 mg/3 mL Solution For Nebulization 1.25 mg INHALATION [id number] PRN (Reason: sob) Rx Instructions: for up to 3 doses lisinopril 20 mg Tablet 20 mg PO QDAY 60 Days Qty: 60 0RF amlodipine 5 mg tablet 5 mg PO QDAY Qty: 30 2RF tramadol 50 mg Tablet 50 mg PO Q6H PRN (Reason: PAIN') divalproex [Depakote ER] 500 mg Tablet Extended Release 24 Hr 500 mg PO BID insulin glargine 100 unit/mL Cartridge 50 unit SUBCUT HS insulin glargine 100 unit/mL Cartridge 35 unit SUBCUT QAM lorazepam 1 mg Tablet 1 mg PO BID pantoprazole 40 mg Tablet,Delayed Release (Dr/Ec) 40 mg PO QDAY GlucaGen HypoKit 1 mg Recon Soln 1 mg SUBCUT Q20M PRN (Reason: Hypoglycemia) Rx Instructions: administer if BS <54 until target blood sugar attained Problem List Clinical Impression: Acute subdural hematoma Patient/Caregiver Discharge Instructions Print Language: Albanian Stand Alone Forms: Hetal Award Info., Patient Portal Info Letter
[2025-03-28 09:18] LABS: Basophils # (Auto) 0.0 Thou/mm3 (0.0-0.2); Basophils % (Auto) 0 % (0-2.5); Eosinophils # (Auto) 0.1 Thou/mm3 (0.0-0.5); Eosinophils % (Auto) 5 % (0-10); Hematocrit 23.8 % (36.0-46.0); Immature Granulocytes Auto 0.16 Thou/mm3 (0.00-0.00); Lymphocytes # (Auto) 0.9 Thou/mm3 (1.0-4.8); Lymphocytes % (Auto) 33 % (10-50); Mean Corpuscular HGB Conc 31.1 g/dl (31.0-37.0); Mean Corpuscular Hemoglobin 31.1 pg (25.0-35.0); Mean Corpuscular Volume 100 fL (80-100); Monocytes # (Auto) 0.3 Thou/mm3 (0.0-0.8); Monocytes % (Auto) 10 % (0-12); Neutrophils # (Auto) 1.3 Thou/mm3 (1.8-7.7); Neutrophils % (Auto) 46 % (37-80); Nucleated Red Blood Cell # 0.00 Thou/mm3 (0.00-0.00); Nucleated Red Blood Cell % 0 /100 WBC (0); RDW Standard Deviation 56.4 fL (36.4-46.3); Red Blood Count 2.38 Miln/mm3 (4.00-5.20); White Blood Count 2.7 Thou/mm3 (3.6-11.0)
[2025-03-28 09:34] LABS: Alanine Aminotransferase 54 U/L (10-49); Albumin, Serum 3.9 gm/dL (3.5-5.0); Albumin/Globulin Ratio 1.1 (1.2-2.2); Alkaline Phosphatase 337 U/L (46-116); Anion Gap 10 (7-16); Aspartate Amino Transferase 46 U/L (0-34); BUN/Creatinine Ratio 16 Ratio (12-20); Bilirubin,Total 0.8 mg/dL (0.3-1.2); Blood Urea Nitrogen 31 mg/dL (9-23); Calcium 9.1 mg/dL (8.3-10.6); Calcium (Corrected) 9.2 mg/dL (8.5-10.1); Carbon Dioxide 26.5 mMol/L (20.0-31.0); Chloride 106 mMol/L (98-107); Creatinine (Component) 1.9 mg/dL (0.6-1.3); Estimated Creatinine Clearance 30.2 mL/min (>60); Globulin 3.6 gm/dL (2.3-3.5); Glucose 203 mg/dL (74-106); Osmolality,Calculated 295 (275-295); Potassium 5.9 mMol/L (3.4-5.1); Sodium 142 mMol/L (136-145); Total Protein 7.5 gm/dL (5.7-8.2); eGFR 31 See Note
[2025-03-28 09:38] LABS: Hemoglobin 7.4 g/dL (12.0-16.0); Platelet Count 52 Thou/mm3 (140-440)
[2025-03-28 10:02] VITALS: BP 123/80; PULSE 68; RESP 14; TEMP 37; O2SAT 98
[2025-03-28 10:25] LABS: INR 1.1 (0.9-1.3); Partial Thromboplastin Time 27.6 Seconds (22.0-36.0); Prothrombin Time 11.9 Seconds (9.0-12.2)
--- NOTE | 2025-03-28 10:48 | PC.CC ---
0837 Dr. Pacheco faxed over transfer request for subdural hematoma. Called [facility] transfer center at 0858 and spoke with Zoie. Requested transfer for neurosurgery at this time and informed Zoie mortgage loan underwriter sent over a face sheet and Ed physician notes prior to phone call. Zoie asking to speak with Dr. Pacheco, transferred call at this time with center nurse satellite communications engineer as well. 0916 Received call from Zoie at [facility] she is requesting the CT report and labs. Labs pending at this time, sent over CT report. 0923 Call made to [facility] Transfer center and spoke with Modesta, she refused patient due to trauma, Adrienne requesting us to call [facility]. At 0936 left message with [facility]. . 0951 Received call from the greenhouse or nursery transplanter Chata, information given. 0957 Received call from Zoie from [facility] with accepting information. [facility] accepted ED to ED with Gabrielle Min. accepting. Report to [phone]. [id number] Pacheco, she is asking for ground stat for transport. Spoke to [facility] with ETA [phone]. Called [facility] to cancel transfer request.
[2025-03-28 10:49] LABS: Slide Review Platelets confirmed
--- NOTE | 2025-03-28 10:49 | PC.NURSE ---
This RN called emergency contact Flower, sister of pt and updated her on pt's status and let them know she will be transferred to [facility] in [place], [place].
== END 2025-03-28 10:51 | disposition short-term general hospital (02) ==
LOC: SERX 10:55
PROVIDERS: Emergency Provider Family Medicine; PCP Family Medicine
DX: S06.5X0A Traumatic subdural hemorrhage without loss of consciousness, initial encounter (principal); S19.9XXA Unspecified injury of neck, initial encounter; W19.XXXA Unspecified fall, initial encounter; E11.9 Type 2 diabetes mellitus without complications; I10 Essential (primary) hypertension; E78.5 Hyperlipidemia, unspecified; Y93.89 Activity, other specified
CPT/HCPCS: 36415; 70450; 72125; 80053; 85025; 85610; 85730; 99284